=== PATIENT | female | born 1960 | race Caucasian/White ===

== ENCOUNTER 2019-12-22 12:23 | Outpatient (REF) | payer OTHER, SELFPAY ==
[2019-12-22 13:51] LABS: MANUAL DIFF FLAG NO
[2019-12-22 13:59] LABS: Basophils Absolute Auto 0.1 X10*3/uL (0.0-0.2); Basophils Percent Auto 0.8 % (0-2); Eosinophils Absolute Auto 0.2 X10*3/uL (0.0-0.4); Eosinophils Percent Auto 2.1 % (0-4); Hematocrit 42.1 % (37-47); Hemoglobin 14.3 g/dl (12.0-16.0); Imm Gran Abs Auto 0.01 X10*3/uL (0.00-0.03); Imm Gran Pct Auto 0.1 % (0.0-0.4); Lymphocytes Absolute Auto 2.8 X10*3/uL (1.2-4.9); Lymphocytes Percent Auto 39.8 % (20-40); Mean Corpuscular Hemoglobin 31.4 pg (27.0-33.0); Mean Corpuscular Volume 92.5 fL (80-98); Mean Platelet Volume 10.4 fL (9.4-12.3); Monocytes Absolute Auto 0.5 X10*3/uL (0.1-1.2); Monocytes Percent Auto 7.3 % (2-11); Neutrophils Absolute Auto 3.5 X10*3/uL (2.0-8.3); Neutrophils Percent Auto 49.9 % (45-73); Platelet Count 280 X10*3/uL (160-400); Red Blood Count 4.55 X10*6/uL (4.20-5.50); Red Cell Distribution Width 13.9 % (11.0-16.0); White Blood Count 7.1 X10*3/uL (4.8-10.8)
[2019-12-22 14:16] LABS: Glucose Urine UA NEG (NEG); Leukocyte Esterase Urine 1+ (NEG); Nitrite Urine NEG (NEG); Urine Blood NEG (NEG); Urine Ketones NEG (NEG); Urine Protein NEG (NEG-TRACE)
[2019-12-22 14:21] LABS: Appearance Urine HAZY; Color Urine YELLOW
[2019-12-22 14:26] LABS: Alanine Aminotransferase 18 U/L (0-31); Albumin Level 4.6 g/dL (3.5-5.0); Alkaline Phosphatase 65 U/L (39-117); Anion Gap 15 (12-20); Aspartate Amino Transferase 27 U/L (5-31); Bilirubin Total 0.5 mg/dL (0.0-1.0); Blood Urea Nitrogen 16 mg/dL (9-16); Calcium 9.7 mg/dL (8.4-10.2); Carbon Dioxide 24 mmol/L (22-29); Chloride 103 mmol/L (96-108); Cholesterol 237 mg/dL; Estimated Glomerular Filt Rate 60; Glucose Fasting 75 mg/dL (60-99); HDL Cholesterol 66 mg/dL; Iron 185 mcg/dL (30-160); LDL Cholesterol Calculated 153 mg/dl; Percent Iron Saturation 88 % (15-50); Potassium 3.9 mmol/l (3.3-5.1); Sodium 138 mmol/L (135-145); Total Iron Binding Capacity 211 mcg/dL (228-428); Total Protein 6.8 g/dL (6.5-8.0); Triglycerides 92 mg/dL; Unsaturated Iron Binding 26 ug/dL
[2019-12-22 14:32] LABS: Bacteria Urine 2+ /LPF; RBC Urine 0 /HPF (0); Squamous Epithelial Cell Urine 3+ /LPF
[2019-12-22 14:33] LABS: Mucus Urine 2+ /LPF
[2019-12-22 14:49] LABS: Ferritin 209 ng/mL (10-250); Vitamin D 25-OH Total 27.8 ng/mL (>30)
== END 2019-12-22 12:24 | disposition home or self-care (01) ==
LOC: HO.HMGCLDS 12:23
PROVIDERS: PCP Internal Medicine; Visit Provider Internal Medicine
DX: Z00.00 Encounter for general adult medical examination without abnormal findings (principal); E83.119 Hemochromatosis, unspecified
CPT/HCPCS: 36415; 80053; 80061; 81001; 81003; 82306; 82728; 83540; 85025

== ENCOUNTER 2020-02-09 13:39 | Outpatient (REF) | payer OTHER, SELFPAY ==
--- NOTE | 2020-02-09 | MM_ITS ---
EXAMINATION: MM SCREENING DIGITAL BREAST TOMOSYNTHESIS, BILATERAL CLINICAL INFORMATION: Screening. Asymptomatic. Prior [id number] mammography from [place] currently unavailable. The lifetime risk of breast cancer based on the Tyrer-Cuzick Model is 5%. COMPARISON: None. TECHNIQUE: Digital breast tomosynthesis is performed in both the craniocaudal and mediolateral oblique views along with computer-aided detection (CAD). Synthesized 2D images are generated from the tomosynthesis. FINDINGS: There are scattered areas of fibroglandular density (ACR BI-RADS breast composition Category b). There are no significant masses, abnormal calcifications, or other abnormalities. The skin contours are smooth. Radiology department staff will attempt to retrieve prior ehe-ob-qadpe mammography to allow for comparison in an addendum report. MM/MM tomosynthesis screening BI IMPRESSION: No mammographic evidence of malignancy. ASSESSMENT: BI-RADS 1: Negative RECOMMENDATION: Routine annual mammography screening. This patient's information was entered into a reminder system with a target due date for their next mammogram.
--- NOTE | 2020-02-09 13:44 | MM_ITS ---
EXAMINATION: BONE DENSITOMETRY CLINICAL INDICATION: Asymptomatic menopausal state. COMPARISON: This is the patient's baseline examination. TECHNIQUE: Using a [employer] DXA System (software version: 13.1) manufactured by [employer], dual-energy x-ray absorptiometry was performed of the lumbar spine and left hip. The images are of good technical quality. Summary results are attached. FINDINGS: AP SPINE L1-L4: BMD 1.104 g/cm2, Z-score 0.4, T-score -0.6, normal. LEFT FEMUR, NECK: BMD 0.909 g/cm2, Z-score 0.2, T-score -0.9, normal. LEFT FEMUR, TOTAL: BMD 0.940 g/cm2, Z-score 0.3, T-score -0.5, normal. IDENTIFIED RISK FACTORS: Early menopause, secondary osteoporosis, hysterectomy. HISTORY OF FRACTURE: None listed. MEDICATIONS: Multivitamin. MM/XR DEXA axial skeleton IMPRESSION: 1. DIAGNOSIS: Normal bone density based on the lowest T-score value of -0.9 in the femoral neck applying World Health Organization criteria. 2. 10-YEAR FRACTURE RISK PREDICTION, FRAX: Major osteoporotic fracture (clinical spine, forearm, hip or shoulder) 6.7%. Hip fracture 0.3%. 3. Treatment Recommendations: NOF guidelines recommend consideration for treatment in postmenopausal women and men age 50 and older presenting with the following: -A hip or vertebral (clinical or morphometric) fracture. -T-score less than or equal to -2.5 at the femoral neck or spine after appropriate evaluation to exclude secondary causes. -Low bone mass at the hip or spine and a 10-year fracture probability by FRAX of greater than or equal to 3% for hip fracture or greater than or equal to 20% for major osteoporotic fracture based on the [place] adapted WHO algorithm. 4. Other Recommendations: All treatment decisions require clinical judgment and consideration of individual patient factors, including patient preferences, comorbidities, previous drug use, risk factors not captured in the FRAX model (e.g. frailty, falls, vitamin D deficiency, increased bone turnover, interval significant decline in bone density) and possible under or overestimation of fracture risk by FRAX. FUTURE SCAN RECOMMENDATION: People with diagnosed cases of osteoporosis or at high risk for fracture should have regular bone mineral density tests. For patients eligible for Medicare, routine testing is allowed once every 2 years. The testing frequency can be increased to one year for patients who have rapidly progressing disease, those who are receiving or discontinuing medical therapy to restore bone mass, or have additional risk factors.
== END 2020-02-09 13:40 | disposition home or self-care (01) ==
LOC: HO.MAMMO 13:39
PROVIDERS: PCP Internal Medicine; Visit Provider Internal Medicine
DX: Z12.31 Encounter for screening mammogram for malignant neoplasm of breast (principal); Z78.0 Asymptomatic menopausal state
CPT/HCPCS: 77063; 77067; 77080

== ENCOUNTER 2020-03-27 14:29 | Outpatient (REF) | payer OTHER, SELFPAY ==
[2020-03-27 15:25] LABS: Influenza A PCR NEGATIVE (Negative); Influenza B PCR NEGATIVE (Negative); Resp Syncy Virus RNA Qual PCR NEGATIVE (Negative); SARS COV2 PCR INHOUSE NEGATIVE (Negative)
== END 2020-03-27 14:30 | disposition home or self-care (01) ==
LOC: HO.LNP 14:29
PROVIDERS: Visit Provider Internal Medicine
DX: M79.10 Myalgia, unspecified site (principal); R42 Dizziness and giddiness; Z20.822 Contact with and (suspected) exposure to COVID-19
CPT/HCPCS: 0241U

== ENCOUNTER 2020-05-10 10:38 | Outpatient (REF) | payer OTHER, SELFPAY ==
[2020-05-10 13:54] LABS: MANUAL DIFF FLAG NO
[2020-05-10 14:02] LABS: Basophils Absolute Auto 0.1 X10*3/uL (0.0-0.2); Basophils Percent Auto 1.1 % (0-2); Eosinophils Absolute Auto 0.2 X10*3/uL (0.0-0.4); Eosinophils Percent Auto 3.4 % (0-4); Hematocrit 45.4 % (37-47); Hemoglobin 15.3 g/dl (12.0-16.0); Imm Gran Abs Auto 0.02 X10*3/uL (0.00-0.03); Imm Gran Pct Auto 0.3 % (0.0-0.4); Lymphocytes Absolute Auto 2.2 X10*3/uL (1.2-4.9); Lymphocytes Percent Auto 36.1 % (20-40); Mean Corpuscular HGB Conc 33.7 g/dl (31.0-35.0); Mean Corpuscular Hemoglobin 31.2 pg (27.0-33.0); Mean Corpuscular Volume 92.7 fL (80-98); Mean Platelet Volume 10.5 fL (9.4-12.3); Monocytes Absolute Auto 0.5 X10*3/uL (0.1-1.2); Monocytes Percent Auto 7.9 % (2-11); Neutrophils Absolute Auto 3.2 X10*3/uL (2.0-8.3); Neutrophils Percent Auto 51.2 % (45-73); Platelet Count 317 X10*3/uL (160-400); Red Cell Distribution Width 13.4 % (11.0-16.0); White Blood Count 6.2 X10*3/uL (4.8-10.8)
[2020-05-10 14:20] LABS: Alanine Aminotransferase 15 U/L (0-31); Albumin Level 4.7 g/dL (3.5-5.0); Alkaline Phosphatase 69 U/L (39-117); Anion Gap 13 (12-20); Aspartate Amino Transferase 26 U/L (5-31); Bilirubin Total 0.5 mg/dL (0.0-1.0); Blood Urea Nitrogen 10 mg/dL (9-16); C Reactive Protein 0.26 mg/dL (< or = 0.50); Calcium 9.9 mg/dL (8.4-10.2); Carbon Dioxide 28 mmol/L (22-29); Chloride 107 mmol/L (96-108); Estimated Glomerular Filt Rate > 60; Glucose Random 94 mg/dL (60-115); Lipase 23 U/L (8-78); Potassium 4.8 mmol/L (3.3-5.1); Sodium 143 mmol/L (135-145)
== END 2020-05-10 10:39 | disposition home or self-care (01) ==
LOC: HO.10HDL 10:38
PROVIDERS: Visit Provider Internal Medicine
DX: R10.9 Unspecified abdominal pain (principal); I10 Essential (primary) hypertension; K21.9 Gastro-esophageal reflux disease without esophagitis
CPT/HCPCS: 36415; 80053; 83690; 85025; 86140

== ENCOUNTER 2020-10-04 06:28 | Outpatient (REF) | payer BC, SELFPAY ==
[2020-10-07 14:31] LABS: TS Negative Control Passed; TS Panel A 0; TS Panel B 0; TS Positive Control Passed; TSpotTB Negative (SeeBelow)
== END 2020-10-04 06:29 | disposition home or self-care (01) ==
LOC: HO.HMGCLDS 06:28
PROVIDERS: PCP Internal Medicine; Visit Provider Internal Medicine
DX: Z11.1 Encounter for screening for respiratory tuberculosis (principal)
CPT/HCPCS: 36415; 86481

== ENCOUNTER 2021-01-12 07:35 | Outpatient (REF) | payer BC, SELFPAY ==
[2021-01-12 07:49] LABS: MANUAL DIFF FLAG NO
[2021-01-12 08:24] LABS: Basophils Absolute Auto 0.1 X10*3/uL (0.0-0.2); Basophils Percent Auto 1.3 % (0-2); Eosinophils Absolute Auto 0.4 X10*3/uL (0.0-0.4); Eosinophils Percent Auto 5.8 % (0-4); Hematocrit 47.5 % (37.0-47.0); Hemoglobin 15.9 g/dl (12.0-16.0); Imm Gran Abs Auto 0.01 X10*3/uL (0.00-0.03); Imm Gran Pct Auto 0.2 % (0.0-0.4); Lymphocytes Percent Auto 32.7 % (20-40); Mean Corpuscular HGB Conc 33.5 g/dl (31.0-35.0); Mean Corpuscular Hemoglobin 31.1 pg (27.0-33.0); Mean Corpuscular Volume 92.8 fL (80.0-98.0); Mean Platelet Volume 9.6 fL (9.4-12.3); Monocytes Absolute Auto 0.5 X10*3/uL (0.1-1.2); Monocytes Percent Auto 8.1 % (2-11); Neutrophils Absolute Auto 3.2 x10*3/uL (2.0-8.3); Neutrophils Percent Auto 51.9 % (45-73); Platelet Count 320 X10*3/uL (160-400); Red Blood Count 5.12 X10*6/uL (4.20-5.50); White Blood Count 6.2 X10*3/uL (4.8-10.8)
[2021-01-12 08:45] LABS: Alanine Aminotransferase 24 U/L (0-31); Albumin Level 4.4 g/dL (3.5-5.0); Alkaline Phosphatase 71 U/L (39-117); Anion Gap 10 (12-20); Aspartate Amino Transferase 28 U/L (5-31); Bilirubin Total 0.4 mg/dL (0.0-1.0); Blood Urea Nitrogen 12 mg/dL (9-16); Calcium 10.1 mg/dL (8.4-10.2); Carbon Dioxide 28 mmol/L (22-29); Chloride 108 mmol/L (96-108); Cholesterol 231 mg/dL; Estimated Glomerular Filt Rate > 60; Glucose Fasting 106 mg/dL (60-99); HDL Cholesterol 58 mg/dL; Iron 154 mcg/dL (30-160); LDL Cholesterol Calculated 157 mg/dl; Percent Iron Saturation 74 % (15-50); Potassium 4.4 mmol/L (3.3-5.1); Sodium 142 mmol/L (135-145); Total Iron Binding Capacity 207 mcg/dL (228-428); Total Protein 6.5 g/dL (6.5-8.0); Triglycerides 80 mg/dL; Unsaturated Iron Binding 53 ug/dL
[2021-01-12 09:01] LABS: Ferritin 242 ng/mL (10-250); Vitamin D 25-OH Total 21.3 ng/mL (>30)
== END 2021-01-12 07:36 | disposition home or self-care (01) ==
LOC: HO.LAB 07:35
PROVIDERS: PCP Internal Medicine; Visit Provider Internal Medicine
DX: K21.9 Gastro-esophageal reflux disease without esophagitis (principal); I10 Essential (primary) hypertension; E78.00 Pure hypercholesterolemia, unspecified; E83.119 Hemochromatosis, unspecified
CPT/HCPCS: 36415; 80053; 80061; 82306; 82728; 83540; 85025

== ENCOUNTER 2021-01-16 14:05 | Outpatient (REF) | payer BC, SELFPAY ==
--- NOTE | ~2021-01-16 | MR_ITS ---
EXAMINATION: MR LUMBAR SPINE WITHOUT CONTRAST CLINICAL INFORMATION: Right greater than left leg pain and low back pain. COMPARISON: None TECHNIQUE: MRI of the lumbar spine was obtained using routine sequences without contrast. FINDINGS: VERTEBRAL BODIES AND PARASPINAL STRUCTURES: The marrow signal is within normal limits. Multilevel endplate Schmorl's nodes noted, particularly at the lower thoracic levels with moderate disc space narrowing. No compression fractures or subluxations identified. There is a mild leftward curvature of the lumbar spine. The imaged lung bases are clear. The paraspinal soft tissues are unremarkable. The imaged bony pelvis appears normal. CONUS MEDULLARIS AND CAUDA EQUINA: Normal, terminating at the level of L1. No lower cord signal abnormalities seen. The cauda equina nerve roots appear normal. SPINAL LEVELS: T10-T11: Moderate loss of disc height and partially visualized left paracentral to left subarticular zone disc extrusion resulting in mild ventral cord distortion. No central canal stenosis or foraminal narrowing. T11-T12: Moderate loss of disc height and central disc protrusion mildly distorts the ventral cord and thecal sac without central canal stenosis or foraminal narrowing. T12-L1: Moderate loss of disc height and central disc extrusion distorts the ventral aspect of the conus tip. No central canal stenosis or foraminal narrowing. L1-L2: Minimal annular bulge. No central canal stenosis or foraminal narrowing. L2-L3: Anterior endplate spurring and very mild disc bulge with mild facet arthropathy. No central canal stenosis or foraminal encroachment. L3-L4: Slight retrosubluxation and disc bulge lateralized to the left side with mild facet arthropathy. No central canal stenosis. Broad-based left extraforaminal disc bulge/protrusion mildly impresses upon the left L3 nerve root. L4-L5: Mild disc space narrowing and disc bulge with moderate facet arthropathy. No central canal stenosis. Right posterolateral disc bulge and endplate spurring with [id number] right foraminal encroachment abutting the exiting right L4 nerve root. L5-S1: No disc pathology. Moderate hypertrophic facet arthropathy without central canal stenosis or foraminal narrowing. MR/MR lumbar spine wo con IMPRESSION: 1. Left paracentral to left subarticular zone disc extrusion at T10-T11 with ventral cord distortion. 2. Small central disc protrusion mildly distorting the ventral cord at the T11-T12 level. 3. Central disc extrusion at T12-L1 with flattening of the ventral aspect of the conus tip. 4. Minimal retrosubluxation and disc bulge at L3-L4 with a left lateralized disc bulge/protrusion mildly impressing upon the extraforaminal left L3 nerve root. 5. Moderate hypertrophic facet arthropathy at the L4-L5 level with bulging disc and endplate spurring resulting in significant right foraminal encroachment and mild distortion of the right L4 nerve root.
== END 2021-01-16 14:06 | disposition home or self-care (01) ==
LOC: HO.MRI 14:05
PROVIDERS: PCP Internal Medicine; Visit Provider Internal Medicine
DX: G57.00 Lesion of sciatic nerve, unspecified lower limb (principal)
CPT/HCPCS: 72148

== ENCOUNTER 2021-03-05 15:47 | Outpatient (REF) | payer BC, SELFPAY ==
[2021-03-05 15:59] LABS: MANUAL DIFF FLAG NO
[2021-03-05 17:13] LABS: Basophils Absolute Auto 0.1 X10*3/uL (0.0-0.2); Eosinophils Absolute Auto 0.2 X10*3/uL (0.0-0.4); Eosinophils Percent Auto 2.9 % (0-4); Hematocrit 45.2 % (37.0-47.0); Hemoglobin 15.3 g/dl (12.0-16.0); Imm Gran Abs Auto 0.02 X10*3/uL (0.00-0.03); Imm Gran Pct Auto 0.3 % (0.0-0.4); Lymphocytes Absolute Auto 3.3 X10*3/uL (1.2-4.9); Lymphocytes Percent Auto 41.5 % (20-40); Mean Corpuscular HGB Conc 33.8 g/dl (31.0-35.0); Mean Corpuscular Hemoglobin 31.7 pg (27.0-33.0); Mean Corpuscular Volume 93.8 fL (80.0-98.0); Mean Platelet Volume 9.6 fL (9.4-12.3); Monocytes Absolute Auto 0.6 X10*3/uL (0.1-1.2); Monocytes Percent Auto 7.4 % (2-11); Neutrophils Absolute Auto 3.7 x10*3/uL (2.0-8.3); Neutrophils Percent Auto 46.9 % (45-73); Platelet Count 341 X10*3/uL (160-400); Red Blood Count 4.82 X10*6/uL (4.20-5.50); White Blood Count 7.9 X10*3/uL (4.8-10.8)
[2021-03-05 17:38] LABS: Alanine Aminotransferase 24 U/L (0-31); Albumin Level 4.6 g/dL (3.5-5.0); Alkaline Phosphatase 72 U/L (39-117); Anion Gap 13 (12-20); Aspartate Amino Transferase 27 U/L (5-31); Bilirubin Total 0.3 mg/dL (0.0-1.0); Blood Urea Nitrogen 14 mg/dL (9-16); Carbon Dioxide 28 mmol/L (22-29); Chloride 106 mmol/L (96-108); Estimated Glomerular Filt Rate > 60; Glucose Random 78 mg/dL (60-115); Potassium 4.5 mmol/L (3.3-5.1); Sodium 142 mmol/L (135-145); Total Protein 7.3 g/dL (6.5-8.0)
== END 2021-03-05 15:48 | disposition home or self-care (01) ==
LOC: HO.LAB 15:47
PROVIDERS: PCP Internal Medicine; Visit Provider Internal Medicine
DX: I10 Essential (primary) hypertension (principal); M54.9 Dorsalgia, unspecified; K21.9 Gastro-esophageal reflux disease without esophagitis
CPT/HCPCS: 36415; 80053; 85025

== ENCOUNTER 2021-05-06 08:44 | Emergency (ER) | payer BC, SELFPAY ==
--- NOTE | ~2021-05-06 | CT_ITS ---
EXAMINATION: CT ABDOMEN AND PELVIS WITH CONTRAST CLINICAL INFORMATION: Abdominal pain and diarrhea COMPARISON: CT abdomen and pelvis 01/24/2018 TECHNIQUE: Multidetector volumetric images were obtained from the superior aspect of the liver through the pubic symphysis following administration 85 mL of Omnipaque 350 intravenous contrast. Sagittal and coronal reformatted images were obtained on the technologist's workstation. Oral contrast: No This CT examination was performed using dose optimization techniques as appropriate, variously including the following: *Automated exposure control *Adjustment of mA and/or kV according to patient size (this includes techniques or standardized protocols for targeted exams where dose is matched to indication/reason for exam; i.e. extremities or head) *Use of iterative reconstruction technique DLP: 367 mGy-cm FINDINGS: LUNG BASES: The visualized lung bases are unremarkable. LIVER, GALLBLADDER, AND BILIARY TREE: The liver is normal in size, shape, and attenuation. No focal hepatic lesion or biliary ductal dilatation is present. The gallbladder is unremarkable with no evidence of radiopaque gallstones, gallbladder wall thickening, or obvious pericholecystic inflammatory changes. PANCREAS: Unremarkable. SPLEEN: Unremarkable. ADRENAL GLANDS: Unremarkable. KIDNEYS AND URETERS: The kidneys are normal in size, shape, and attenuation. No hydronephrosis, hydroureter, or calculi seen. No perinephric stranding. BLADDER: Unremarkable. GASTROINTESTINAL TRACT: Nondilated small and large bowel are fluid-filled consistent with the history of diarrhea. There is no mural thickening or surrounding inflammatory change. No abscess. No evidence of obstruction. The appendix is normal. ABDOMINAL WALL: No significant hernia is appreciated. LYMPH NODES: Minimally prominent retroperitoneal lymph nodes are stable compared to prior. VASCULAR: Mild aortoiliac atherosclerosis. No aortic aneurysm. The celiac, SMA, and YSABEL are patent. PELVIC VISCERA: Hysterectomy. No pelvic mass. OSSEOUS STRUCTURES: Mild degenerative changes in the spine. No suspicious osseous lesions. CT/CT abdomen pelvis w con IMPRESSION: Nondilated, fluid-filled small and large bowel consistent with the history of diarrhea. No focal inflammatory enteric or colonic inflammatory changes or wall thickening. The findings are consistent with mild enterocolitis. Fleischner guidelines were followed.
[2021-05-06 09:07] VITALS: BP 109/73; PULSE 104; RESP 18; TEMP 37.3; O2SAT 96; BMI 25.2
[2021-05-06 09:34] LABS: Basophils Percent Auto 0.2 % (0-2); Eosinophils Percent Auto 0.3 % (0-4); Hematocrit 47.6 % (37.0-47.0); Hemoglobin 16.4 g/dl (12.0-16.0); Imm Gran Abs Auto 0.05 X10*3/uL (0.00-0.03); Imm Gran Pct Auto 0.4 % (0.0-0.4); Lymphocytes Absolute Auto 0.3 X10*3/uL (1.2-4.9); Lymphocytes Percent Auto 2.5 % (20-40); MANUAL DIFF FLAG SCAN; Mean Corpuscular HGB Conc 34.5 g/dl (31.0-35.0); Mean Corpuscular Hemoglobin 31.7 pg (27.0-33.0); Mean Corpuscular Volume 92.1 fL (80.0-98.0); Mean Platelet Volume 9.3 fL (9.4-12.3); Monocytes Absolute Auto 0.4 X10*3/uL (0.1-1.2); Monocytes Percent Auto 3.6 % (2-11); Neutrophils Absolute Auto 11.2 x10*3/uL (2.0-8.3); Platelet Count 293 X10*3/uL (160-400); Red Blood Count 5.17 X10*6/uL (4.20-5.50); Red Cell Distribution Width 14.3 % (11.0-16.0); SCAN SMEAR FLAG 1; White Blood Count 12.1 X10*3/uL (4.8-10.8)
[2021-05-06 09:44] LABS: Anion Gap 14 (12-20); Blood Urea Nitrogen 19 mg/dL (9-16); Calcium 9.9 mg/dL (8.4-10.2); Carbon Dioxide 21 mmol/L (22-29); Chloride 108 mmol/L (96-108); Creatinine Clr Calc Pharmacy 54.1; Estimated Glomerular Filt Rate 54; Glucose Random 128 mg/dL (60-115); Potassium 4.2 mmol/L (3.3-5.1); Sodium 139 mmol/L (135-145)
[2021-05-06 10:26] LABS: SLIDE REVIEW VERIFIED
[2021-05-06 11:48] VITALS: BP 137/89; PULSE 100; RESP 18; O2SAT 99
--- NOTE | 2021-05-06 11:48 | PC.NURSE ---
Pt received: Pt AOX4 and offers c/o intermittent epigastric abd pain that radiates to under R arm. Pt also c/o intermittent loose diarrea since 2100 last night with vomit x1. Heart sounds normal and lungs clear. Pt abd soft and tenderness to epigastric tenderness noted.
--- NOTE | 2021-05-06 12:03 | ED_ITS ---
HPI - General Adult General Chief complaint: Nausea/Vomiting/Diarrhea Stated complaint: diarrhea/dehydrated/abd pain Time Seen by Provider: 05/06/21 11:55 Source: patient Mode of arrival: ambulatory Limitations: no limitations History of Present Illness HPI narrative: 60-year-old female past medical history of sciatica presents to ED for abdominal cramping and multiple episodes of diarrhea. Patient states around 11 30 last night p.m. she woke up with abdominal cramping and had at least 15-20 episodes of diarrhea that was watery and brown. Patient denies any fever or recent travel outside the country. Patient states abdominal cramping and diarrhea might have been due to strain she ate that night. Patient states she took out the shrimp from the freezer and collected and then went to bed. And then start ed having symptoms. Patient states 4 weeks ago she ate the same straight from the freezer and had similar symptoms but not having worsening diarrhea. Patient denies any recent antibiotic or hospital admission. Patient states vaccinated against COVID with Modernal including booster. Related Data Previous Rx's Medication Instructions Recorded vancomycin 125 mg capsule 125 mg PO QID 10 Days #40 cap 05/06/21 Allergies Allergy/AdvReac Type Severity Reaction Status Date / Time Penicillins [PENICILLINS] Allergy Intermediate HIVES Verified 05/06/21 09:05 Sulfa (Sulfonamide Allergy Intermediate HIVES Verified 05/06/21 09:05 Antibiotics) [SULFA (SULFONAMIDE ANTIBIOTICS)] penicillin G Allergy Unknown hives Verified 02/11/18 00:00 Review of Systems Review of Systems: abdominal cramping and diarrhea Yes all other systems are reviewed and are negative [facility] Past Medical History Medical History (Updated 05/06/21 @ 15:58 by JOSÉ Portillo) Hemochromatosis HTN (hypertension) Social History Social History Advance Directives: No Advance Directives Information Provided: No Physical Exam ED Vital Signs: Vital Signs - 24 hr 05/06/21 09:07 05/06/21 11:48 05/06/21 13:05 Temperature 99.2 F 99 F Pulse Rate 104 H 100 92 Respiratory Rate 18 18 18 Blood Pressure 109/73 137/89 121/70 Pulse Oximetry 96 99 98 BMI result Body Mass Index 25.2 Const General: cooperative, healthy appearing, comfortable, no acute distress, well developed, alert, awake and Physically active Orientation/consciousness: patient oriented x3 HENMT Head: Yes normal to inspection, Yes No palpable skull fracture present, Yes normocephalic, Yes atraumatic and No abrasion Eyes General: appearance normal, both eyes and all related structures Neck Neck: Yes normal visual inspection, Yes full ROM, Yes no lymphadenopathy, Yes no meningeal signs, Yes trachea midline, Yes supple, No anterior neck swelling and No tender Chest Chest palpation & inspection: normal inspection of the chest and normal palpation of entire chest wall Resp Effort & Inspection: normal respiratory effort and able to speak in complete sentences Auscultation: clear to auscultation bilaterally Cardio Jugular venous distension: no JVD Heart sounds: S1 normal heart sound present and S2 normal heart sound present GI Inspection: Yes normal to inspection and No abdominal wall ecchymosis Palpation (GI): Tenderness to palpation present (GI) (mild lower abdominal cramping), no guarding and not rigid General: No CVA tenderness and Yes no CVA tenderness Back/Spine/Pelvis Back: no CVA tenderness, No CVA tenderness and No back tenderness Skin General skin exam: no rashes or lesions noted and elasticity normal Neuro General: patient oriented x3, gait normal, no meningeal signs and CN's II-XI intact bilaterally Cranial nerves: Yes CN's II-XII intact bilaterally Extrem General: Yes normal to inspection and Yes full ROM Psych Appearance: grossly normal, well kempt and not disheveled Course Course Course Narrative: [place] [id number]. Will order IV fluids and abdominal CT scan to evaluate for colitis. Stool culture, C diff, and COVID swab ordered Reevaluation(s) Reevaluation #1: Electrolytes and CBC normal. Patient sent for CT scan came back negative for colitis. UA normal. stool leukocytes negative. Patient came back positive for C. diff. patient will be discharged with vancomycin and told to self isolate from family. Presently no indication for admission. 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 Time: 15:53 Medical Decision Making [facility] Narrative Medical decision making narrative: C diff Lab Data Result diagrams: 05/06/21 09:18 05/06/21 09:18 Labs: Lab Results 05/06/21 05/06/21 05/06/21 Range/Units 09:18 09:18 12:26 WBC 12.1 H (4.8-10.8) X10*3/uL RBC 5.17 (4.20-5.50) X10*6/uL Hgb 16.4 H (12.0-16.0) g/dl Hct 47.6 H (37.0-47.0) % MCV 92.1 (80.0-98.0) fL MCH 31.7 (27.0-33.0) pg MCHC 34.5 (31.0-35.0) g/dl RDW 14.3 (11.0-16.0) % Plt Count 293 (160-400) X10*3/uL MPV 9.3 L (9.4-12.3) fL Immature Gran % (Auto) 0.4 (0.0-0.4) % Neut % (Auto) 93.0 H (45-73) % Lymph % (Auto) 2.5 L (20-40) % [place] % (Auto) 3.6 (2-11) % Eos % (Auto) 0.3 (0-4) % Baso % (Auto) 0.2 (0-2) % Lymph # (Auto) 0.3 L (1.2-4.9) X10*3/uL [place] # (Auto) 0.4 (0.1-1.2) X10*3/uL Eos # (Auto) 0.0 (0.0-0.4) X10*3/uL Baso # (Auto) 0.0 (0.0-0.2) X10*3/uL Abs Immat Gran (auto) 0.05 H (0.00-0.03) X10*3/uL Absolute Neuts (auto) 11.2 H (2.0-8.3) x10*3/uL Absolute Nucleated RBC 0.000 (0.0-0.012) X10*3/uL Nucleated RBC % (auto) 0.0 (0.0-0.2) /100WBC Smear Tech's Comments VERIFIED Sodium 139 (135-145) mmol/L Potassium 4.2 (3.3-5.1) mmol/L Chloride 108 (96-108) mmol/L Carbon Dioxide 21 L (22-29) mmol/L Anion Gap 14 (12-20) BUN 19 H (9-16) mg/dL Creatinine 1.05 (0.5-1.4) mg/dL Estim Creat Clear Calc 54.1 Estimated GFR 54 Random Glucose 128 H (60-115) mg/dL Calcium 9.9 (8.4-10.2) mg/dL Urine Color Urine Appearance Urine pH (5.0-8.0) Ur Specific [place] (1.005-1.025) Urine Protein (NEG-TRACE) MG/DL Urine Glucose (UA) (NEG) MG/DL Urine Ketones (NEG) MG/DL Urine Blood (NEG) Urine Nitrite (NEG) Ur Leukocyte Esterase (NEG) Stool Leukocytes, Qual (NEGATIVE) C. difficile Tox B Gene (Negative) C. difficile Toxin A&B (Negative) C. difficile Interpret COVID-19 (ASHWIN) Negative (Negative) COVID-19 Clin Com See Note 05/06/21 05/06/21 05/06/21 Range/Units 13:37 13:37 13:37 WBC (4.8-10.8) X10*3/uL RBC (4.20-5.50) X10*6/uL Hgb (12.0-16.0) g/dl Hct (37.0-47.0) % MCV (80.0-98.0) fL MCH (27.0-33.0) pg MCHC (31.0-35.0) g/dl RDW (11.0-16.0) % Plt Count (160-400) X10*3/uL MPV (9.4-12.3) fL Immature Gran % (Auto) (0.0-0.4) % Neut % (Auto) (45-73) % Lymph % (Auto) (20-40) % [place] % (Auto) (2-11) % Eos % (Auto) (0-4) % Baso % (Auto) (0-2) % Lymph # (Auto) (1.2-4.9) X10*3/uL [place] # (Auto) (0.1-1.2) X10*3/uL Eos # (Auto) (0.0-0.4) X10*3/uL Baso # (Auto) (0.0-0.2) X10*3/uL Abs Immat Gran (auto) (0.00-0.03) X10*3/uL Absolute Neuts (auto) (2.0-8.3) x10*3/uL Absolute Nucleated RBC (0.0-0.012) X10*3/uL Nucleated RBC % (auto) (0.0-0.2) /100WBC Smear Tech's Comments Sodium (135-145) mmol/L Potassium (3.3-5.1) mmol/L Chloride (96-108) mmol/L Carbon Dioxide (22-29) mmol/L Anion Gap (12-20) BUN (9-16) mg/dL Creatinine (0.5-1.4) mg/dL Estim Creat Clear Calc Estimated GFR Random Glucose (60-115) mg/dL Calcium (8.4-10.2) mg/dL Urine Color YELLOW Urine Appearance HAZY Urine pH 5.5 (5.0-8.0) Ur Specific [place] 1.010 (1.005-1.025) Urine Protein TRACE (NEG-TRACE) MG/DL Urine Glucose (UA) NEG (NEG) MG/DL Urine Ketones NEG (NEG) MG/DL Urine Blood NEG (NEG) Urine Nitrite NEG (NEG) Ur Leukocyte Esterase NEG (NEG) Stool Leukocytes, Qual NEGATIVE (NEGATIVE) C. difficile Tox B Gene POSITIVE A* (Negative) C. difficile Toxin A&B Negative (Negative) C. difficile Interpret SEE NOTE COVID-19 (ASHWIN) (Negative) COVID-19 Clin Com Discharge Plan Discharge Clinical Impression: Clostridium difficile infection Patient Disposition: Home, Self-Care Instructions: C. Diff (Clostridioides Difficile) Infection (ED) Additional Instructions: you came back positive for C diff. this will require to receive vancomycin oral antibiotics. You need to take time off from work. Recommend Brat ( Banna, Rice, Apple sauce, and [place]) and oral hydration. return to the ED for weakness, intractable diarrhea, nausea, vomiting, fever, chills, pale skin, or any other concerning symptoms. Prescriptions: New vancomycin 125 mg capsule 125 mg PO QID 10 Days Qty: 40 0RF Stand Alone Forms: Work/School Release Interventions: ED Discharge Assessment Last Done: 05/06/21 16:17 Discharge Date/Time: 05/06/21 16:18 Print Language: Mohawk
[2021-05-06 12:49] LABS: COVID-19 Test Negative (Negative); IDNOW Serial# 08D9AD1C
[2021-05-06 13:05] VITALS: BP 121/70; PULSE 92; RESP 18; TEMP 37.2; O2SAT 98
[2021-05-06] MEDS: iohexoL 350 MG/ML 100 ML INFUS..BTL IV (13:11)
[2021-05-06] MEDS: 0.9 % Sodium Chloride 1,000 ML 999 ML IV (13:43)
[2021-05-06] MEDS: Ketorolac Tromethamine 30 MG/ML VIAL IVPUSH (13:46)
[2021-05-06 14:03] LABS: Appearance Urine HAZY; Color Urine YELLOW; Glucose Urine UA NEG (NEG); Leukocyte Esterase Urine NEG (NEG); Nitrite Urine NEG (NEG); PH 5.5 (5.0-8.0); Urine Blood NEG (NEG); Urine Ketones NEG (NEG); Urine Protein TRACE MG/DL (NEG-TRACE)
[2021-05-06 14:24] LABS: Leukocytes Stool Qualitative NEGATIVE (NEGATIVE)
[2021-05-06 14:49] LABS: CDiff Gene PCR POSITIVE (Negative)
[2021-05-06 15:25] LABS: CDIFF Internal ctrl Dots and bkg OK (V); CDiff Toxin Negative (Negative)
== END 2021-05-06 16:18 | disposition home or self-care (01) ==
PROVIDERS: Physician Assistant; Emergency Provider Emergency Medicine; PCP Internal Medicine
DX: A04.72 Enterocolitis due to Clostridium difficile, not specified as recurrent (principal); I10 Essential (primary) hypertension; Z20.822 Contact with and (suspected) exposure to COVID-19
CPT/HCPCS: 36415; 74177; 80048; 81003; 85025; 87045; 87046; 87324; 87493; 87635; 89055; 96361; 96374; 99283; 99284; J1885; Q9967

== ENCOUNTER 2021-06-01 10:11 | Outpatient (REF) | payer BC, SELFPAY ==
[2021-06-01 10:40] LABS: MANUAL DIFF FLAG NO
[2021-06-01 11:16] LABS: Basophils Absolute Auto 0.1 X10*3/uL (0.0-0.2); Basophils Percent Auto 1.5 % (0-2); Eosinophils Absolute Auto 0.2 X10*3/uL (0.0-0.4); Eosinophils Percent Auto 3.5 % (0-4); Hematocrit 44.1 % (37.0-47.0); Hemoglobin 14.8 g/dl (12.0-16.0); Imm Gran Abs Auto 0.01 X10*3/uL (0.00-0.03); Imm Gran Pct Auto 0.2 % (0.0-0.4); Lymphocytes Absolute Auto 2.1 X10*3/uL (1.2-4.9); Lymphocytes Percent Auto 38.6 % (20-40); Mean Corpuscular HGB Conc 33.6 g/dl (31.0-35.0); Mean Corpuscular Hemoglobin 31.2 pg (27.0-33.0); Mean Platelet Volume 9.5 fL (9.4-12.3); Monocytes Absolute Auto 0.5 X10*3/uL (0.1-1.2); Monocytes Percent Auto 9.2 % (2-11); Neutrophils Absolute Auto 2.6 x10*3/uL (2.0-8.3); Platelet Count 278 X10*3/uL (160-400); Red Blood Count 4.74 X10*6/uL (4.20-5.50); Red Cell Distribution Width 14.1 % (11.0-16.0); White Blood Count 5.4 X10*3/uL (4.8-10.8)
[2021-06-01 12:03] LABS: Alanine Aminotransferase 19 U/L (0-31); Albumin Level 4.3 g/dL (3.5-5.0); Alkaline Phosphatase 63 U/L (39-117); Anion Gap 11 (12-20); Aspartate Amino Transferase 25 U/L (5-31); Bilirubin Total 0.6 mg/dL (0.0-1.0); Blood Urea Nitrogen 11 mg/dL (9-16); C Reactive Protein 0.17 mg/dL (< or = 0.50); Calcium 9.9 mg/dL (8.4-10.2); Carbon Dioxide 26 mmol/L (22-29); Chloride 106 mmol/L (96-108); Estimated Glomerular Filt Rate > 60; Glucose Random 92 mg/dL (60-115); Potassium 4.1 mmol/L (3.3-5.1); Sodium 139 mmol/L (135-145); Total Protein 6.6 g/dL (6.5-8.0)
== END 2021-06-01 10:12 | disposition home or self-care (01) ==
LOC: HO.LAB 10:11
PROVIDERS: PCP Internal Medicine; Visit Provider Internal Medicine
DX: I10 Essential (primary) hypertension (principal); K21.9 Gastro-esophageal reflux disease without esophagitis; B96.89 Other specified bacterial agents as the cause of diseases classified elsewhere
CPT/HCPCS: 36415; 80053; 85025; 86140

== ENCOUNTER 2022-01-15 09:36 | Outpatient (REF) | payer BC, SELFPAY ==
--- NOTE | ~2022-01-15 | XR_ITS ---
EXAMINATION: XR CHEST CLINICAL INFORMATION: Weight loss COMPARISON: Previous chest x-ray most recent May 2019 TECHNIQUE: 2 views of the chest were obtained. FINDINGS: No significant abnormality is noted involving the heart, lungs, mediastinum, bony thorax or soft tissues. There are postsurgical changes to the cervical spine. There are mild degenerative changes of the thoracic spine. XR/XR chest 2V IMPRESSION: No evidence for acute disease in the chest.
[2022-01-15 10:26] LABS: MANUAL DIFF FLAG NO
[2022-01-15 10:30] LABS: Basophils Absolute Auto 0.1 X10*3/uL (0.0-0.2); Basophils Percent Auto 1.1 % (0-2); Eosinophils Absolute Auto 0.1 X10*3/uL (0.0-0.4); Hematocrit 45.8 % (37.0-47.0); Hemoglobin 15.3 g/dl (12.0-16.0); Imm Gran Abs Auto 0.01 X10*3/uL (0.00-0.03); Imm Gran Pct Auto 0.2 % (0.0-0.4); Lymphocytes Absolute Auto 2.2 X10*3/uL (1.2-4.9); Lymphocytes Percent Auto 33.1 % (20-40); Mean Corpuscular HGB Conc 33.4 g/dl (31.0-35.0); Mean Corpuscular Hemoglobin 31.9 pg (27.0-33.0); Mean Corpuscular Volume 95.4 fL (80.0-98.0); Mean Platelet Volume 9.7 fL (9.4-12.3); Monocytes Absolute Auto 0.5 X10*3/uL (0.1-1.2); Monocytes Percent Auto 7.1 % (2-11); Neutrophils Absolute Auto 3.7 x10*3/uL (2.0-8.3); Neutrophils Percent Auto 56.5 % (45-73); Platelet Count 286 X10*3/uL (160-400); Red Cell Distribution Width 13.6 % (11.0-16.0); White Blood Count 6.6 X10*3/uL (4.8-10.8)
[2022-01-15 10:40] LABS: Alanine Aminotransferase 13 U/L (0-31); Albumin Level 4.6 g/dL (3.5-5.0); Alkaline Phosphatase 58 U/L (39-117); Anion Gap 15 (12-20); Aspartate Amino Transferase 22 U/L (5-31); Bilirubin Total 0.5 mg/dL (0.0-1.0); Blood Urea Nitrogen 12 mg/dL (9-16); C Reactive Protein 0.12 mg/dL (< or = 0.50); Calcium 10.2 mg/dL (8.4-10.2); Carbon Dioxide 25 mmol/L (22-29); Chloride 105 mmol/L (96-108); Cholesterol 239 mg/dL; Estimated Glomerular Filt Rate > 60; Glucose Random 91 mg/dL (60-115); Potassium 4.3 mmol/L (3.3-5.1); Sodium 141 mmol/L (135-145)
[2022-01-15 11:01] LABS: Free T4 (Free Thyroxine) 0.92 ng/dL (0.71-1.85)
== END 2022-01-15 09:37 | disposition home or self-care (01) ==
LOC: HO.10HDL 09:36
PROVIDERS: Visit Provider Internal Medicine
DX: I10 Essential (primary) hypertension (principal); R63.4 Abnormal weight loss; K21.9 Gastro-esophageal reflux disease without esophagitis; Z87.891 Personal history of nicotine dependence
CPT/HCPCS: 36415; 71046; 80053; 82465; 84439; 85025; 86140

== ENCOUNTER 2022-05-07 14:34 | Outpatient (REF) | payer BC, SELFPAY | END 2022-05-07 14:35 | disposition home or self-care (01) | LOC: HO.BBR 14:34 | PROVIDERS: Visit Provider Internal Medicine Gastroenterology | DX: Z13.89 Encounter for screening for other disorder (principal) ==

== ENCOUNTER 2022-06-04 14:49 | Outpatient (REF) | payer BC, SELFPAY | END 2022-06-04 14:50 | disposition home or self-care (01) | LOC: HO.BBR 14:49 | PROVIDERS: PCP Internal Medicine; Visit Provider Internal Medicine Gastroenterology | DX: Z13.89 Encounter for screening for other disorder (principal) ==

== ENCOUNTER 2022-07-09 15:07 | Outpatient (REF) | payer BC, SELFPAY | END 2022-07-09 15:08 | disposition home or self-care (01) | LOC: HO.BBR 15:07 | PROVIDERS: PCP Internal Medicine; Visit Provider Internal Medicine Gastroenterology | DX: Z13.89 Encounter for screening for other disorder (principal) ==

== ENCOUNTER 2022-08-13 07:54 | Outpatient (REF) | payer BC, SELFPAY | END 2022-08-13 07:55 | disposition home or self-care (01) | LOC: HO.BBR 07:54 | PROVIDERS: PCP Internal Medicine; Visit Provider Internal Medicine Gastroenterology | DX: Z13.89 Encounter for screening for other disorder (principal) ==

== ENCOUNTER 2022-09-17 12:54 | Outpatient (REF) | payer BC, SELFPAY | END 2022-09-17 12:55 | disposition home or self-care (01) | LOC: HO.BBR 12:54 | PROVIDERS: PCP Internal Medicine; Visit Provider Internal Medicine Gastroenterology | DX: Z13.89 Encounter for screening for other disorder (principal) ==

== ENCOUNTER 2022-10-22 14:49 | Outpatient (REF) | payer BC, SELFPAY | END 2022-10-22 14:50 | disposition home or self-care (01) | LOC: HO.BBR 14:49 | PROVIDERS: PCP Internal Medicine; Visit Provider Internal Medicine Gastroenterology | DX: Z13.89 Encounter for screening for other disorder (principal) ==

== ENCOUNTER 2022-11-19 14:56 | Outpatient (REF) | payer BC, SELFPAY | END 2022-11-19 14:57 | disposition home or self-care (01) | LOC: HO.BBR 14:56 | PROVIDERS: PCP Internal Medicine; Visit Provider Internal Medicine Gastroenterology | DX: Z13.89 Encounter for screening for other disorder (principal) ==

== ENCOUNTER 2022-12-17 13:51 | Outpatient (REF) | payer BC, SELFPAY | END 2022-12-17 13:52 | disposition home or self-care (01) | LOC: HO.BBR 13:51 | PROVIDERS: PCP Internal Medicine; Visit Provider Internal Medicine Gastroenterology | DX: Z13.89 Encounter for screening for other disorder (principal) ==

== ENCOUNTER 2023-01-28 07:59 | Outpatient (REF) | payer BC, SELFPAY | END 2023-01-28 08:00 | disposition home or self-care (01) | LOC: HO.MAMMO 07:59 | PROVIDERS: PCP Internal Medicine; Visit Provider Internal Medicine | DX: Z12.31 Encounter for screening mammogram for malignant neoplasm of breast (principal) | CPT/HCPCS: 77063; 77067 ==

== ENCOUNTER → 2023-01-28 08:15 | Outpatient (BNV) | payer BC, SELFPAY | PROVIDERS: PCP Internal Medicine; Visit Provider Radiology Diagnostic Radiology | DX: Z12.31 Encounter for screening mammogram for malignant neoplasm of breast (principal) | CPT/HCPCS: 77063; 77067 ==

== ENCOUNTER 2023-01-28 08:44 | Outpatient (REF) | payer BC, SELFPAY | END 2023-01-28 08:45 | disposition home or self-care (01) | LOC: HO.BBR 08:44 | PROVIDERS: PCP Internal Medicine; Visit Provider Internal Medicine Gastroenterology | DX: Z13.89 Encounter for screening for other disorder (principal) ==

== ENCOUNTER 2023-02-25 15:21 | Outpatient (REF) | payer BC, SELFPAY | END 2023-02-25 15:22 | disposition home or self-care (01) | LOC: HO.BBR 15:21 | PROVIDERS: PCP Internal Medicine; Visit Provider Internal Medicine Gastroenterology | DX: Z13.89 Encounter for screening for other disorder (principal) ==

== ENCOUNTER 2023-03-25 15:11 | Outpatient (REF) | payer BC, SELFPAY | END 2023-03-25 15:12 | disposition home or self-care (01) | LOC: HO.BBR 15:11 | PROVIDERS: PCP Internal Medicine; Visit Provider Internal Medicine Gastroenterology | DX: Z13.89 Encounter for screening for other disorder (principal) ==

== ENCOUNTER 2023-04-01 06:59 | Outpatient (REF) | payer BC, SELFPAY ==
[2023-04-01 11:24] LABS: MANUAL DIFF FLAG NO
[2023-04-01 11:42] LABS: Basophils Absolute Auto 0.1 X10*3/uL (0.0-0.2); Eosinophils Absolute Auto 0.2 X10*3/uL (0.0-0.4); Eosinophils Percent Auto 4.4 % (0-4); Hematocrit 36.6 % (37.0-47.0); Hemoglobin 11.8 g/dl (12.0-16.0); Imm Gran Abs Auto 0.01 X10*3/uL (0.00-0.03); Imm Gran Pct Auto 0.2 % (0.0-0.4); Lymphocytes Absolute Auto 1.8 X10*3/uL (1.2-4.9); Lymphocytes Percent Auto 42.7 % (20-40); Mean Corpuscular HGB Conc 32.2 g/dl (31.0-35.0); Mean Corpuscular Hemoglobin 28.9 pg (27.0-33.0); Mean Corpuscular Volume 89.7 fL (80.0-98.0); Mean Platelet Volume 9.8 fL (9.4-12.3); Monocytes Absolute Auto 0.4 X10*3/uL (0.1-1.2); Monocytes Percent Auto 8.8 % (2-11); Neutrophils Absolute Auto 1.7 x10*3/uL (2.0-8.3); Neutrophils Percent Auto 41.9 % (45-73); Platelet Count 399 X10*3/uL (160-400); Red Blood Count 4.08 X10*6/uL (4.20-5.50); Red Cell Distribution Width 13.3 % (11.0-16.0); White Blood Count 4.1 X10*3/uL (4.8-10.8)
[2023-04-01 11:53] LABS: Alanine Aminotransferase 10 U/L (0-31); Albumin Level 4.2 g/dL (3.5-5.0); Alkaline Phosphatase 52 U/L (39-117); Anion Gap 13 (12-20); Aspartate Amino Transferase 20 U/L (5-31); Bilirubin Total 0.3 mg/dL (0.0-1.0); Blood Urea Nitrogen 14 mg/dL (9-16); Calcium 9.6 mg/dL (8.4-10.2); Carbon Dioxide 24 mmol/L (22-29); Chloride 110 mmol/L (96-108); Cholesterol 256 mg/dL (<200); Estimated Glomerular Filt Rate > 60; Glucose Fasting 93 mg/dL (60-99); HDL Cholesterol 72 mg/dL (>40); LDL Cholesterol Calculated 161 mg/dL (<100); Potassium 4.1 mmol/L (3.3-5.1); Sodium 143 mmol/L (135-145); Total Protein 6.8 g/dL (6.5-8.0); Triglycerides 115 mg/dL (<150)
[2023-04-01 12:18] LABS: Alanine Aminotransferase 10 U/L (0-31); Albumin Level 4.1 g/dL (3.5-5.0); Alkaline Phosphatase 52 U/L (39-117); Anion Gap 14 (12-20); Aspartate Amino Transferase 18 U/L (5-31); Bilirubin Direct 0.1 mg/dL (0.0-0.5); Bilirubin Total 0.3 mg/dL (0.0-1.0); Blood Urea Nitrogen 14 mg/dL (9-16); Calcium 9.5 mg/dL (8.4-10.2); Carbon Dioxide 22 mmol/L (22-29); Chloride 110 mmol/L (96-108); Estimated Glomerular Filt Rate > 60; Ferritin 8 ng/mL (10-250); Glucose Random 89 mg/dL (60-115); Iron 22 mcg/dL (30-160); Percent Iron Saturation 8 % (15-50); Potassium 4.1 mmol/L (3.3-5.1); Sodium 142 mmol/L (135-145); Total Iron Binding Capacity 264 mcg/dL (228-428); Total Protein 6.7 g/dL (6.5-8.0); Unsaturated Iron Binding 242 ug/dL
== END 2023-04-01 07:00 | disposition home or self-care (01) ==
LOC: HO.HMGCLDS 06:59
PROVIDERS: PCP Internal Medicine; Referring Provider Internal Medicine Gastroenterology; Visit Provider Internal Medicine
DX: K21.9 Gastro-esophageal reflux disease without esophagitis (principal); E78.00 Pure hypercholesterolemia, unspecified; I10 Essential (primary) hypertension
CPT/HCPCS: 36415; 80048; 80053; 80061; 80076; 82728; 83540; 85025

== ENCOUNTER 2023-04-10 07:38 | Outpatient (REF) | payer BC, SELFPAY ==
[2023-04-10 08:21] LABS: Immature Retic Fraction 14.6 % (3.0-15.9); Retic HGB Equivalent 27.1 pg (30.0-35.0); Reticulocyte Percent 2.5 % (0.5-1.8); Reticulocytes Absolute 0.095 X10*6/uL (0.026-0.095)
[2023-04-10 09:06] LABS: Free T4 (Free Thyroxine) 0.81 ng/dL (0.71-1.85); Thyroid Stimulating Hormone 2.09 uIU/mL (0.32-4.0)
== END 2023-04-10 07:39 | disposition home or self-care (01) ==
LOC: HO.LAB 07:38
PROVIDERS: PCP Internal Medicine; Visit Provider Internal Medicine
DX: D64.9 Anemia, unspecified (principal); R63.5 Abnormal weight gain; E83.119 Hemochromatosis, unspecified; R00.2 Palpitations
CPT/HCPCS: 36415; 83735; 84439; 84443; 85045

== ENCOUNTER → 2023-05-06 07:36 | Outpatient (REF) | payer BC, SELFPAY ==
--- NOTE | 2023-05-06 07:42 | CA_ITS ---
Transthoracic Echocardiogram Patient (Last, First, Middle): Linda Coyle K Gender: Female Date of : 1960 Age: 62 Procedure Date: 05/06/2023 Procedure Type: Transthoracic Echocardiogram Location: OP Height: 165.1 cm Weight: 58.97 kg BSA: 1.65 m2 Heart Rate: bpm BP: 146 / 100 mmHg [place]: TO Referring MD: Billy Aguilar MD Market Development Trainer: Tony Baker MD Symptoms: PALPITATIONS Study Quality: Adequate ECG Rhythm: Sinus Conclusions: - 1. Normal LV systolic function with LVEF of 60-65% with grade 1 diastolic dysfunction 2. Trivial aortic regurgitation 3. Upper limits of normal ascending aortic size at 3.5 cm 4. Normal RV systolic pressure 5. No gross pericardial effusion Findings Left Ventricle Normal left ventricular size, thickness, and systolic function. The visually estimated ejection fraction is between 60-65%. Spectral Doppler is indicative of an impaired relaxation filling pattern. E/E prime ratio is <8, consistent with normal filling pressures. Evidence suggests grade I (mild) diastolic dysfunction. Peak GLS is -21.5%, within normal limits. Right Ventricle Normal right ventricular cavity size and systolic function. Atria Both atria are normal in size. There is no evidence of interatrial shunt. Aortic Valve Normal aortic valve structure and function. There is no aortic valve stenosis. There is trace (trivial) aortic valve regurgitation. Mitral Valve Normal mitral valve structure and function. There is trace mitral valve regurgitation. There is no mitral valve stenosis. Pulmonic Valve The pulmonic valve is likely normal. There is trace pulmonic valve regurgitation. Tricuspid Valve Normal tricuspid valve structure. There is trace tricuspid valve regurgitation. The right ventricular systolic pressure is normal. The right ventricular systolic pressure is 15 mmHg. Normal right atrial pressure. There is no evidence of pulmonary hypertension. Great Vessels The pulmonary artery was not well visualized. Venous The inferior vena cava is normal in size and collapses greater than 50% with inspiration. Pericardium/Pleural There is no evidence of pericardial effusion. Prior Study Comparison No prior study available for comparison. Measurements 2D Linear Measurements IVSd: 1.17 0.6-0.9/0.6-1.0 cm LVIDd: 4.08 3.9-5.3/4.2-5.9 cm LVIDd Index: 2.47 2.4-3.2/2.2-3.1 cm/m2 LVIDs: 2.58 2.0-3.6 cm LVPWd: 0.85 0.7-1.1 cm LA Diam: 2.90 2.7-3.8/3.0-4.0 cm LAIDs Index: 1.76 1.5-2.3 cm/m2 LV Mass: 165.43 67-162/88-224 g LV Mass Index: 100.26 43-95/49-115 g/m2 LVOT Diam: 2.10 3.0+(-)1.3 cm 2D Systolic Function EF 4C: 63.60 >55% EF 2C: 68.90 >55% EF BiP: 66.20 >55% Mitral Valve MV VTI: 0.25 MV Pk Dieudonne: 0.86 MV Mn Dieudonne: 0.52 MV Pk Grad: 3.00 MV Mn Grad: 1.00 MV Pk E: 0.58 MV PK A: 0.74 MV Decel Time: 207.00 E/A: 0.80 E'Lateral: 8.38 E'Medial: 5.22 E/E' Med: 11.20 E/E' Lat: 7.00 PHT: 61.00 MVA PHT: 3.61 MVA Continuity: 2.79 Decel [place]: 2.82 Aortic Valve AoV Pk Dieud[place]: 1.06 AoV Mn [place]: 0.68 AoV VTI: 0.22 AoV Pk Grad: 4.00 Aov Mn Grad: 2.00 EMILY Cont.VTI: 3.07 LVOT LVOT Pk [place]: 0.87 LVOT Mn [place]: 0.55 LVOT VTI: 0.20 LVOT Pk Grad: 3.00 LVOT Mn Grad: 1.00 LVOT Diam: 2.10 LVOT Area: 3.46 Diastolic Function MV Pk E: 0.58 MV Pk A: 0.74 E/A: 0.80 E'Medial: 5.22 E/E' Med: 11.20 E' Laterial: 8.38 E/E' Lat: 7.00 Right Ventricle TAPSE (mm): 19.30 TVS' Dieudonne: 11.90 Tricuspid Valve TR Pk [place]: 1.72 TR Pk Grad: 12.00 RA Press: 3.00 RVSP: 15.00 Great Vessels Aorta Sinus of Valsalva: 3.78 2.0-3.5 cm Ao Asc: 3.50 2.1-3.4 cm Updated in Other Vendor System with Status of Final Tony Baker MD electronically signed on 05/06/2023 2:20:50 PM with status of Final
--- NOTE | 2023-05-06 07:43 | CA_ITS ---
Acquisition Time: 2023-05-06 09:01:50 Total Exercise Time: 00:06:19 Test Indications: PALPITATIONS Medications: SEE H Protocol: JOIE Max HR: 136 BPM 85% of Pred: 159 BPM Max BP: 168/090 mmHG Max Work Load: 7.2 METS Exercise stress test exercise 6 min 19 sec of Joie protocol achieving 86% MPHR, with mild SOB, no chest discomfort, with isolated PACs and PVCs, with intial diastolic 98 mmHg, reduced to 88 mmHg, max diasoltic 110 mmHg. end Bp at baseline, with inverted T wave aVF. Test reviewed with Dr. Almaguer. Referred By: Billy Aguilar Overread By: Karrie Barreto
== END ==
LOC: HO.CARD 07:36
PROVIDERS: PCP Internal Medicine; Visit Provider Internal Medicine
DX: R00.2 Palpitations (principal)
CPT/HCPCS: 93017; 93306; 93356

== ENCOUNTER → 2023-05-06 07:42 | Outpatient (BNV) | payer BC, SELFPAY | PROVIDERS: PCP Internal Medicine; Visit Provider Internal Medicine Cardiovascular Disease | DX: R06.02 Shortness of breath (principal); I49.1 Atrial premature depolarization; R00.2 Palpitations | CPT/HCPCS: 93016; 93018; 93306 ==

== ENCOUNTER → 2023-06-03 07:53 | Outpatient (REF) | payer BC, SELFPAY ==
--- NOTE | ~2023-06-03 | US_ITS ---
EXAMINATION: US ABDOMEN COMPLETE CLINICAL INFORMATION: History of GHC (genetic hemochromatosis). COMPARISON: CT abdomen and pelvis 05/06/2021. Ultrasound abdomen limited 07/27/2018. Ultrasound abdomen complete 02/03/2018. TECHNIQUE: Real-time imaging of the abdominal viscera. FINDINGS: PANCREAS: Normal. ABDOMINAL AORTA: The proximal, mid, and distal segments are normal in caliber. INFERIOR VENA CAVA: Visualized portions are normal. LIVER: Normal. The liver is normal in size. The liver contour is normal. Parenchymal echogenicity is normal. No focal hepatic lesion. There is no intrahepatic biliary duct dilatation seen. GALLBLADDER: The gallbladder is physiologically distended. Multiple shadowing gallstones are present. No evidence of gallbladder wall thickening or pericholecystic fluid. COMMON BILE DUCT: Normal in caliber measuring 0.6 cm in diameter. RIGHT KIDNEY: Normal. No hydronephrosis. No renal calculi or focal parenchymal lesions. The kidney measures 10.2 cm in maximum dimension. LEFT KIDNEY: Normal. No hydronephrosis. No renal calculi or focal parenchymal lesions. The kidney measures 10.1 cm in maximum dimension. SPLEEN: Normal. The spleen measures 8.2 cm in maximum dimension. FREE FLUID: None. US/US abdomen complete IMPRESSION: There is cholelithiasis. The examination is otherwise unremarkable.
--- NOTE | 2023-06-03 07:56 | HM_ITS ---
Conclusion: 1. Patient was monitored for total period of 3 days 2. Baseline was normal sinus with average heart of 71 beats per minute 3. Rare PACs noted 4. No significant pauses noted 5. Patient marked the counter 5 times, correlating with sinus rhythm, the diary recorded symptoms did not correlated with the markers MTDD
== END ==
LOC: HO.CARD 07:53
PROVIDERS: PCP Internal Medicine; Visit Provider Internal Medicine Gastroenterology
DX: R00.2 Palpitations (principal); E83.110 Hereditary hemochromatosis
CPT/HCPCS: 76700; 93242

== ENCOUNTER → 2023-06-03 07:56 | Outpatient (BNV) | payer BC, SELFPAY | PROVIDERS: PCP Internal Medicine; Visit Provider Internal Medicine Cardiovascular Disease | DX: I49.1 Atrial premature depolarization (principal) | CPT/HCPCS: 93244 ==

== ENCOUNTER 2023-10-14 10:37 | Outpatient (REF) | payer BC, SELFPAY ==
[2023-10-14 13:21] LABS: MANUAL DIFF FLAG NO
[2023-10-14 13:49] LABS: Basophils Absolute Auto 0.1 X10*3/uL (0.0-0.2); Basophils Percent Auto 0.9 % (0-2); Eosinophils Absolute Auto 0.1 X10*3/uL (0.0-0.4); Eosinophils Percent Auto 0.9 % (0-4); Hematocrit 41.8 % (37.0-47.0); Hemoglobin 13.9 g/dl (12.0-16.0); Imm Gran Abs Auto 0.02 X10*3/uL (0.00-0.03); Imm Gran Pct Auto 0.2 % (0.0-0.4); Lymphocytes Absolute Auto 1.6 X10*3/uL (1.2-4.9); Mean Corpuscular HGB Conc 33.3 g/dl (31.0-35.0); Mean Corpuscular Hemoglobin 28.7 pg (27.0-33.0); Mean Corpuscular Volume 86.2 fL (80.0-98.0); Mean Platelet Volume 10.4 fL (9.4-12.3); Monocytes Absolute Auto 0.7 X10*3/uL (0.1-1.2); Monocytes Percent Auto 7.7 % (2-11); Neutrophils Percent Auto 71.3 % (45-73); Platelet Count 309 X10*3/uL (160-400); Red Blood Count 4.85 X10*6/uL (4.20-5.50); White Blood Count 8.5 X10*3/uL (4.8-10.8)
[2023-10-14 14:03] LABS: Alanine Aminotransferase 11 U/L (0-31); Albumin Level 4.1 g/dL (3.5-5.0); Alkaline Phosphatase 71 U/L (39-117); Anion Gap 11 (12-20); Aspartate Amino Transferase 21 U/L (5-31); Bilirubin Total 0.3 mg/dL (0.0-1.0); Blood Urea Nitrogen 11 mg/dL (9-16); Calcium 9.7 mg/dL (8.4-10.2); Carbon Dioxide 23 mmol/L (22-29); Chloride 108 mmol/L (96-108); Estimated Glomerular Filt Rate > 60; Glucose Random 160 mg/dL (60-115); Iron 51 mcg/dL (30-160); Percent Iron Saturation 23 % (15-50); Potassium 3.4 mmol/L (3.3-5.1); Sodium 139 mmol/L (135-145); Total Iron Binding Capacity 220 mcg/dL (228-428); Total Protein 6.8 g/dL (6.5-8.0); Unsaturated Iron Binding 169 ug/dL
[2023-10-14 14:10] LABS: Ferritin 20 ng/mL (10-250); Free T4 (Free Thyroxine) 1.01 ng/dL (0.71-1.85); Thyroid Stimulating Hormone 1.38 uIU/mL (0.32-4.0)
== END 2023-10-14 10:38 | disposition home or self-care (01) ==
LOC: HO.10HDL 10:37
PROVIDERS: Referring Provider Internal Medicine Gastroenterology; Visit Provider Internal Medicine
DX: I10 Essential (primary) hypertension (principal); K21.9 Gastro-esophageal reflux disease without esophagitis; R63.5 Abnormal weight gain
CPT/HCPCS: 36415; 80053; 82728; 83540; 83735; 84439; 84443; 85025

== ENCOUNTER 2023-10-28 08:31 | Outpatient (AMB) | payer BC, SELFPAY ==
--- NOTE | 2023-10-28 08:39 | A.OFFVIS_ITS ---
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 She states that she is frequently getting heart fluttering type sensations. They were too bothersome in the past but these days she is getting him almost regularly. She feels as though there is some pulsations in the neck and she also gets an need to cough that time. No clear anginal-type symptoms or in fact anything else from cardiac. No known coronary disease or myocardial infarction or cardiomyopathy. Poorly controlled hypertension. [facility] Medical History (Updated 10/28/23 @ 09:13 by Scotty Reynolds MD) Hemochromatosis HTN (hypertension) Family History (Updated 10/28/23 @ 08:45 by Cyndee Jonas CMA) Brother Atrial fibrillation History of cardioversion Social History (Updated 10/28/23 @ 09:11 by Scotty Reynolds MD) Patient Tobacco Use Status: Current everyday Tobacco user Review of Systems Const Denies chills, Denies fatigue, Denies fever(s), Denies weight gain and Denies weight loss Eyes Denies loss of vision ENT Denies dizziness Card Denies chest pain, Denies leg edema, Denies lightheadedness, Reports palpitations, Denies dyspnea on exertion, Denies orthopnea and Denies other Resp Denies cough, Denies dyspnea on exertion and Denies wheezing GI Denies hematochezia and Denies change in stool character Denies urinary frequency and Denies dysuria Musc Denies abnormal gait, Denies muscle weakness, Denies numbness, Denies radiating pain into limb and Denies tingling Skin/Breast Denies nail changes and Denies rash Neuro Denies Abnormal speech present, Denies abnormal gait, Denies dizziness, Denies loss of vision, Denies memory loss, Denies numbness and Denies tingling Psych Denies depression and Denies memory loss Endo Denies fatigue and Reports palpitations Edison/Lymph Denies easy bruising Aller/Immun Denies wheezing Physical Exam Vital Signs: Last Vital Signs Pulse 61 10/28/23 08:40 BP 164/100 H 10/28/23 08:40 BMI result Body Mass Index 25.4 Const General: comfortable and no acute distress Orientation/consciousness: patient oriented x3 HEENT Other: Unremarkable Head: Yes normal to inspection Neck Neck: Yes normal visual inspection Chest Chest palpation & inspection: normal inspection of the chest Resp Auscultation: clear to auscultation bilaterally Cardio Palpation: normal PMI Heart sounds: S1 normal heart sound present, S2 normal heart sound present, no gallops, no murmurs and no rubs GI Palpation (GI): Soft to palpation Back/Spine/Pelvis Other: unremarkable Skin General skin exam: no rashes or lesions noted Neuro General: patient oriented x3 Speech: No Abnormal speech present Extrem General: Yes normal to inspection Psych Mental Status: mental status grossly normal Office Procedures EKG Details: EKG with underlying sinus rhythm at 61/Min; no significant ST-T changes and otherwise unremarkable. [id number], Complete Assessment & Plan Assessment & Plan (1) Atrial arrhythmia: Code(s): I49.8 - Other specified cardiac arrhythmias Category: Medical Plan: Cardiac studies reviewed. Echocardiogram with LVEF of 60-65%. Normal peak global longitudinal strain. Top normal ascending aortic size at 3.5 cm but otherwise unremarkable. Holter shows underlying sinus rhythm with rare supraventricular ectopy. In the stress test, she was able to exercise up to 7.2 METS on Silviano protocol and reached target heart rate. No chest discomfort. Unremarkable test. Overall, symptoms possibly from PACs, but unclear if she has any other arrhythmias. As she is describing much more symptoms than in the past, consider another Holter monitor for a longer period-14 days. However, she feels as though it might be more expensive as previously she paid more than a 1000 dollars for this. Hence she would like to just try something like [employer] mobile, if that is cheaper. She will check with the insurance and decide accordingly. Otherwise, advised to cut back on stimulants like nicotine, caffeine, salty foods extra. We will reassess in 3 months. (2) Essential hypertension: Code(s): I10 - Essential (primary) hypertension Category: Medical Plan: Blood pressure runs quite high. I checked it again and it is similar. Per patient, intolerance to several drugs. With amlodipine, got tired. With lisinopril, got cough. With losartan, again some symptoms like fatigue and tiredness. We can try hydrochlorothiazide. As long as labs are okay, then we can maybe add spironolactone. If there is any significant atrial arrhythmias, then beta-blockers but carvedilol can be added too which should help both palpitations and hypertension. Orders: Orders ECG 14 day holter monitor Today R00.2 - Palpitations Basic Metabolic Panel 4 Weeks I10 - Essential (primary) hypertension Medications: New hydrochlorothiazide 25 mg PO DAILY 90 tabs 3RF Discontinued vancomycin Discontinued Reason: Patient no longer taking 125 mg PO QID 10 days 40 caps 0RF Coding Level of Care Code New Pt Level 4 (41437) Diagnoses Atrial arrhythmia I49.8 Essential hypertension I10 CPT Codes EKG - CPT: 46198-[id number], Complete ([id number])
[2023-10-28 08:40] VITALS: BP 164/100; PULSE 61; BMI 25.4
== END 2023-10-28 09:33 | disposition home or self-care (01) ==
PROVIDERS: PCP Internal Medicine; Visit Provider Internal Medicine
DX: I49.8 Other specified cardiac arrhythmias (principal); I10 Essential (primary) hypertension
CPT/HCPCS: 93010; 99204

== ENCOUNTER → 2023-10-28 08:31 | Outpatient (BNVA) | payer BC, SELFPAY | PROVIDERS: PCP Internal Medicine; Visit Provider Internal Medicine | DX: I49.8 Other specified cardiac arrhythmias (principal); I10 Essential (primary) hypertension | CPT/HCPCS: 93005 ==

== ENCOUNTER 2023-11-12 08:01 | Outpatient (REF) | payer BC, SELFPAY ==
[2023-11-12 14:58] LABS: Bacterial Vaginosis PCR NEGATIVE (Negative); Candida Group PCR NOT DETECTED (Not Detect); Candida glab krusei PCR NOT DETECTED (Not Detect); Trichomonas vaginalis PCR NOT DETECTED (Not Detect)
== END 2023-11-12 08:02 | disposition home or self-care (01) ==
LOC: HO.LNP 08:01
PROVIDERS: PCP Internal Medicine; Visit Provider Obstetrics & Gynecology
DX: N89.8 Other specified noninflammatory disorders of vagina (principal)
CPT/HCPCS: 0352U

== ENCOUNTER 2023-11-12 08:01 | Outpatient (AMB) | payer BC, SELFPAY ==
[2023-11-12 08:05] VITALS: BP 110/76; BMI 25.4
--- NOTE | 2023-11-12 08:05 | MHC.OFFVIS ---
Vital Signs 11/12/23 08:05 Height 5 ft 4 in Weight 147 lb 11.355 oz BMI 25.4 BP 110/76 Intake Visit Reasons: post menopausal, HX breast CA/Referral Pasteurizer Required: No Information Interpreted: non-clinical & clinical Film Or Tape Librarian: Film Or Tape Librarian Present (Lian Juarez GLORIA) Accompanied by: Self / Same As Patient Allergies Penicillins [PENICILLINS] Allergy (Intermediate, Verified 11/12/23 08:07) HIVES Sulfa (Sulfonamide Antibiotics) [SULFA (SULFONAMIDE ANTIBIOTICS)] Allergy (Intermediate, Verified 11/12/23 08:07) HIVES penicillin G Allergy (Unknown, Verified 11/12/23 08:07) hives Post menopausal: Yes HPI Comments Details: Presenting complaining of bilateral vulvar itching that started few months ago after a course of antibiotics, recently the patient been diagnosed with elevated fasting blood sugar is in the process of having workup for diabetes. In addition , recently the patient's sister was diagnosed with breast cancer at the age of 54 with positive RAD 51 C gene with a breast cancer risk 21-25% in 5-11% risk of ovarian cancer in her sister. Patient has not had a genetic testing yet Last mammogram in 01/22 was BI-RADS 1 [facility] Medical History Hemochromatosis HTN (hypertension) Family History Brother Atrial fibrillation History of cardioversion Sister Breast cancer Social History Household Members: None Housing: Apartment Alcohol intake: former Patient Tobacco Use Status: Current everyday Tobacco user Cigarettes Per Day: 4 Current occupational status: employed Current occupation: Nurse Sexual orientation: Straight/Heterosexual Gender identity: Female Female Reproductive History Menstrual Date of Mammogram: 01/28/23 Review of Systems Const All systems reviewed & are unremarkable except as noted in HPI and below Physical Exam Vital Signs: Last Vital Signs BP 110/76 11/12/23 08:05 BMI result Body Mass Index 25.4 General: Yes no CVA tenderness External Female Exam: normal external appearance and normal appearance of the urethra Speculum Exam - Vagina: normal appearance of the vagina, normal palpation, no lesions and no masses Speculum Exam - Cervix: normal appearance of the cervix, normal palpation, no lesions, no masses and nontender Bimanual exam- vagina & uterus: normal bimanual exam, normal palpation, uterine size normal, normal palpation, uterine shape normal, No Cervical tenderness present and non-tender Bimanual Exam- Adnexa, other: normal adnexae Back/Spine/Pelvis Back: no CVA tenderness Assessment & Plan Assessment & Plan (1) Vulvovaginal itching: Code(s): L29.2 - Pruritus vulvae Category: Medical Plan: Bacterial Vaginosis panel taken, Terazol 0.8% q.h.s. for 3 days with Lotrisone cream b.i.d. for 5 days were sent to the patient's pharmacy. The patient was instructed to schedule a follow-up appointment within 2 weeks if not improved will consider vulvar biopsy. (2) Family history of breast cancer: Comment: Sister with positive RAD 51 C gene Code(s): Z80.3 - Family history of malignant neoplasm of breast Category: Medical Plan: Given the will history of breast cancer in her sister with a positive genetic component will refer to Dr. Hewitt for further management, possible genetic testing. Instructions given the patient if she has any positive gene identified for breast and elevated ovarian cancer risk to call back will discuss the indication for bilateral prophylactic salpingo oophorectomy. All questions answered, the patient verbalized understanding Orders: Orders Bacterial Vaginosis Panel Today N89.8 - Other specified noninflammatory disorders of vagina Medications: New terconazole 0.8% 1 appful vaginal BEDTIME 3 days 20 grams 0RF clotrimazole-betamethasone 1-0.05 % 1 appl topical BID 5 days 45 grams 0RF Coding Level of Care Code New Pt Level 3 (77085) Diagnoses Vulvovaginal itching L29.2 Family history of breast cancer Z80.3
== END 2023-11-12 10:43 | disposition home or self-care (01) ==
PROVIDERS: PCP Internal Medicine; Visit Provider Obstetrics & Gynecology
DX: L29.2 Pruritus vulvae (principal); Z80.3 Family history of malignant neoplasm of breast
CPT/HCPCS: 99203

== ENCOUNTER 2023-12-10 07:39 | Outpatient (AMB) | payer BC, SELFPAY ==
--- NOTE | 2023-12-10 07:41 | A.OFFVIS_ITS ---
Vital Signs 12/10/23 07:42 Height 5 ft 4 in Weight 147 lb 11.355 oz BMI 25.4 Intake Visit Reasons: 2 week vaginal check College President Required: No Information Interpreted: non-clinical & clinical Commercial Roofing Estimator: Commercial Roofing Estimator Present (Lian Juarez GLORIA) Accompanied by: Self / Same As Patient Allergies Penicillins [PENICILLINS] Allergy (Intermediate, Verified 12/10/23 07:42) HIVES Sulfa (Sulfonamide Antibiotics) [SULFA (SULFONAMIDE ANTIBIOTICS)] Allergy (Intermediate, Verified 12/10/23 07:42) HIVES penicillin G Allergy (Unknown, Verified 12/10/23 07:42) hives Post menopausal: Yes HPI Comments Details: Presenting for follow up regarding vaginal itching. The patient took Terazol 0.8% q.h.s. for 3 days with Lotrisone cream b.i.d. for 5 days and did not have any improvement in terms of itching No appointment scheduled with general surgery regarding consult yet [facility] Medical History Hemochromatosis HTN (hypertension) Family History Brother Atrial fibrillation History of cardioversion Sister Breast cancer Social History Household Members: None Housing: Apartment Alcohol intake: former Patient Tobacco Use Status: Current everyday Tobacco user Cigarettes Per Day: 4 Current occupational status: employed Current occupation: Nurse Sexual orientation: Straight/Heterosexual Gender identity: Female Review of Systems Const All systems reviewed & are unremarkable except as noted in HPI and below Physical Exam General: Yes no CVA tenderness External Female Exam: normal external appearance and normal appearance of the urethra Speculum Exam - Vagina: normal appearance of the vagina, normal palpation, no lesions and no masses Speculum Exam - Cervix: normal appearance of the cervix, normal palpation, no lesions, no masses and nontender Bimanual exam- vagina & uterus: normal bimanual exam, normal palpation, uterine size normal, normal palpation, uterine shape normal, No Cervical tenderness present and non-tender Bimanual Exam- Adnexa, other: normal adnexae Back/Spine/Pelvis Back: no CVA tenderness Assessment & Plan Assessment & Plan (1) Vulvovaginal itching: Code(s): L29.2 - Pruritus vulvae Category: Medical Plan: Discussed with the patient the finding on pelvic exam normal with no evidence of leukoplakia. Trial of clobetasol to be applied the affected area b.i.d. for 7 days. Instructions given to patient to follow-up in 2 weeks. All questions answered, the patient verbalized understanding (2) Family history of breast cancer: Comment: Sister with positive RAD 51 C gene Code(s): Z80.3 - Family history of malignant neoplasm of breast Category: Medical Plan: The patient was referred to general surgery for consult Orders: Referrals General Surgery Referral Z91.89 - Other specified personal risk factors, not elsewhere classified Coding Level of Care Code Est Pt Level 3 (35211) Diagnoses Vulvovaginal itching L29.2 Family history of breast cancer Z80.3
[2023-12-10 07:42] VITALS: BMI 25.4
== END 2023-12-10 08:47 | disposition home or self-care (01) ==
PROVIDERS: PCP Internal Medicine; Visit Provider Obstetrics & Gynecology
DX: L29.2 Pruritus vulvae (principal); Z80.3 Family history of malignant neoplasm of breast
CPT/HCPCS: 99213

== ENCOUNTER → 2023-12-10 07:39 | Outpatient (BNVA) | payer BC, SELFPAY | PROVIDERS: PCP Internal Medicine; Visit Provider Obstetrics & Gynecology ==

== ENCOUNTER 2024-02-03 07:58 | Outpatient (REF) | payer OTHER, SELFPAY ==
--- NOTE | ~2024-02-03 | MM_ITS ---
EXAMINATION: MM SCREENING DIGITAL BREAST TOMOSYNTHESIS, BILATERAL CLINICAL INFORMATION: Screening. Asymptomatic. COMPARISON: Mammography: Comparison is made with available priors TECHNIQUE: Digital breast mammography with tomosynthesis is performed in both the craniocaudal and mediolateral oblique views along with computer-aided detection (CAD). FINDINGS: The breasts are heterogeneously dense, which may obscure small masses (ACR BI-RADS breast composition Category c). There are no significant masses, abnormal calcifications, or other abnormalities. MM/MM tomosynthesis screening BI IMPRESSION: No mammographic evidence of malignancy. ASSESSMENT: BI-RADS BI-RADS 1 - Negative RECOMMENDATION: Routine annual mammography screening. 1 year F/U This examination should not preclude the clinical evaluation of a suspicious palpable abnormality. This patient's information was entered into a reminder system with a target due date for their next mammogram. Electronically signed by: Ondina Morris DO 02/09/2024 10:15 AM VERONICA
== END 2024-02-03 07:59 | disposition home or self-care (01) ==
LOC: HO.MAMMO 07:58
PROVIDERS: PCP Internal Medicine; Visit Provider Internal Medicine
DX: Z12.31 Encounter for screening mammogram for malignant neoplasm of breast (principal)
CPT/HCPCS: 77063; 77067

== ENCOUNTER → 2024-02-03 08:15 | Outpatient (BNV) | payer OTHER, SELFPAY | PROVIDERS: PCP Internal Medicine; Visit Provider Internal Medicine | DX: Z12.31 Encounter for screening mammogram for malignant neoplasm of breast (principal) | CPT/HCPCS: 77063; 77067 ==

== ENCOUNTER 2024-02-12 09:47 | Outpatient (AMB) | payer OTHER, SELFPAY ==
--- NOTE | 2024-02-12 09:53 | MHC.OFFWIV ---
Intake Vital Signs 02/12/24 09:56 Weight 148 lb BP 122/80 Blood Pressure Location Lt brachial Position Sitting Pulse 76 Pulse Source Pulse Oximeter Pulse Oximetry (%) 98 Oxygen Delivery Method Room Air Intake Visit Reasons: EP pain on both hands & wrist specially the RT one Intake Note: Patient here for bilat hand and wrist pain that has been going on for a while now, but last thursday is when it started to worsen. Patient Tobacco Use Status: Current everyday Tobacco user Allergies Penicillins [PENICILLINS] Allergy (Intermediate, Verified 02/12/24 09:55) HIVES Sulfa (Sulfonamide Antibiotics) [SULFA (SULFONAMIDE ANTIBIOTICS)] Allergy (Intermediate, Verified 02/12/24 09:55) HIVES penicillin G Allergy (Unknown, Verified 02/12/24 09:55) hives Do you need a note to return to daycare/school/sports/work: No HPI HPI Comments History of Present Illness Details This is a 63-year-old female with a past medical history of hemochromatosis, arthritis and hypertension presenting for evaluation of bilateral upper arm pain. 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 She states 2 months ago she developed tingling in her upper arms bilaterally that would last for hours and up to 1 day. Patient states last Thursday she started to note pain in her forearms, wrists and hands bilaterally for which she has been taking 600-800 mg of ibuprofen twice daily. Patient states that her pain is worse in the morning. Patient denies any injury or trauma preceding the onset of her symptoms. [facility] Medical History Hemochromatosis HTN (hypertension) Family History Brother Atrial fibrillation History of cardioversion Sister Breast cancer Social History Household Members: None Housing: Apartment Alcohol intake: former Patient Tobacco Use Status: Current everyday Tobacco user Cigarettes Per Day: 4 Current occupational status: employed Current occupation: Nurse Sexual orientation: Straight/Heterosexual Gender identity: Female Review of Systems Const All systems reviewed & are unremarkable except as noted in HPI and below Eyes Reports no additional complaints ENT Reports no additional complaints and Reports neck pain Card Reports no additional complaints Resp Reports no additional complaints GI Reports no additional complaints Reports no additional complaints Musc Denies back pain, Denies myalgias, Reports arthralgias, Denies muscle weakness, Reports neck pain, Denies numbness, Reports stiffness and Reports tingling Skin/Breast Reports system reviewed and no additional complaints, except as documented Neuro Reports no additional complaints, Denies numbness and Reports tingling Psych Reports no additional complaints Endo Reports no additional complaints Edison/Lymph Reports no additional complaints Aller/Immun Reports no additional complaints Physical Exam Vital Signs: Last Vital Signs Pulse 76 02/12/24 09:56 BP 122/80 02/12/24 09:56 Pulse Ox 98 02/12/24 09:56 Oxygen Delivery Method Room Air 02/12/24 09:56 Const General: cooperative, healthy appearing, comfortable, no acute distress, well developed, alert, awake and Physically active; No lethargic Nutritional Appearance: average body habitus Orientation/consciousness: patient oriented x3 and No lethargic Limitations: no limitations Skin General skin exam: no rashes or lesions noted Neuro General: patient oriented x3 Extrem General: Yes full ROM, Yes capillary refill normal and No no joint enlargement (enlargement of MCPs bilateral hands, R > L; chief of field operations strength intact equally) Right upper extremity: normal capillary refill, shoulder/upper arm Details: normal ROM, elbow/forearm (minimal pain medial epicondyle, ROM right olecranon intact), wrist Details: tenderness, swelling and abnormal ROM (decreased ROM secondary to mild pain); no unusual warmth and Extremity exam: right hand Details: normal capillary refill and neuromotor exam normal; no tenderness, no unusual warmth and no swelling; no cyanosis, no edema and joint enlargement noted (MCPs bilaterally enlarged) Left upper extremity: normal to inspection, no joint enlargement, shoulder/upper arm Details: normal ROM and hand Details: normal capillary refill, neuromotor exam normal and normal ROM of fingers; no tenderness, no unusual warmth and no swelling; no cyanosis and no edema Psych Appearance: grossly normal Mental Status: mental status grossly normal Insight: Good insight present (Psych) Judgement: Good judgement present (Psych) Assessment & Plan Assessment & Plan (1) Arthritis: Comment: Patient states her brother works at [employer] and she will obtain wrist splints from him Code(s): M19.90 - Unspecified osteoarthritis, unspecified site Plan: Diclofenac 1% gel topically QID as needed (2) Upper extremity tendinopathy: Comment: Wrist splints daily Code(s): M67.98 - Unspecified disorder of synovium and tendon, other site Plan: EC Naprosyn once daily for pain; patient will discuss ergonomic changes with her employer as her symptoms began shortly after starting her new job 3 months ago. Patient will follow up with her primary care provider as an outpatient. Medications: New naproxen (EC-Naprosyn) 1,000 mg (2 x 500 mg) PO DAILY 40 tabs 0RF diclofenac sodium 1% apply to wrist four times daily 4 grams topical QID 100 grams 1RF Coding Level of Care Code Est Pt Level 3 (35531) Diagnoses Arthritis M19.90 Upper extremity tendinopathy M67.98 Time Spent (min) 30
[2024-02-12 09:56] VITALS: BP 122/80; PULSE 76; O2SAT 98
== END 2024-02-12 10:40 | disposition home or self-care (01) ==
PROVIDERS: PCP Internal Medicine; Visit Provider Physician Assistant
DX: M19.90 Unspecified osteoarthritis, unspecified site (principal); M67.98 Unspecified disorder of synovium and tendon, other site

== ENCOUNTER → 2024-02-12 09:47 | Outpatient (BNVA) | payer OTHER, SELFPAY | PROVIDERS: PCP Internal Medicine; Visit Provider Physician Assistant ==

== ENCOUNTER 2024-02-12 10:26 | Outpatient (REF) | payer OTHER, SELFPAY ==
[2024-02-12 13:11] LABS: MANUAL DIFF FLAG NO
[2024-02-12 13:28] LABS: Basophils Percent Auto 0.5 % (0-2); Eosinophils Absolute Auto 0.1 X10*3/uL (0.0-0.4); Eosinophils Percent Auto 0.9 % (0-4); Hemoglobin 15.5 g/dl (12.0-16.0); Imm Gran Abs Auto 0.08 X10*3/uL (0.00-0.03); Imm Gran Pct Auto 1.1 % (0.0-0.4); Lymphocytes Absolute Auto 1.5 X10*3/uL (1.2-4.9); Lymphocytes Percent Auto 19.5 % (20-40); Mean Corpuscular HGB Conc 34.4 g/dl (31.0-35.0); Mean Corpuscular Hemoglobin 30.7 pg (27.0-33.0); Mean Corpuscular Volume 89.1 fL (80.0-98.0); Mean Platelet Volume 9.9 fL (9.4-12.3); Monocytes Absolute Auto 0.6 X10*3/uL (0.1-1.2); Monocytes Percent Auto 7.6 % (2-11); Neutrophils Absolute Auto 5.3 x10*3/uL (2.0-8.3); Neutrophils Percent Auto 70.4 % (45-73); Platelet Count 346 X10*3/uL (160-400); Red Blood Count 5.05 X10*6/uL (4.20-5.50); Red Cell Distribution Width 15.2 % (11.0-16.0); White Blood Count 7.5 X10*3/uL (4.8-10.8)
[2024-02-12 13:39] LABS: Alanine Aminotransferase 15 U/L (0-31); Albumin Level 4.4 g/dL (3.5-5.0); Alkaline Phosphatase 55 U/L (39-117); Anion Gap 11 (12-20); Aspartate Amino Transferase 30 U/L (5-31); Bilirubin Total 0.3 mg/dL (0.0-1.0); Blood Urea Nitrogen 16 mg/dL (9-16); C Reactive Protein 0.64 mg/dL (< or = 0.50); Calcium 10.3 mg/dL (8.4-10.2); Carbon Dioxide 25 mmol/L (22-29); Chloride 104 mmol/L (96-108); Estimated Glomerular Filt Rate > 60; Glucose Random 90 mg/dL (60-115); Potassium 3.2 mmol/L (3.3-5.1); Sodium 137 mmol/L (135-145); Total Protein 7.1 g/dL (6.5-8.0)
[2024-02-12 14:03] LABS: Erythrocyte Sedimentation Rate 3 MM/HR (0-20)
== END 2024-02-12 10:27 | disposition home or self-care (01) ==
LOC: HO.HMGCLDS 10:26
PROVIDERS: PCP Internal Medicine; Visit Provider Internal Medicine
DX: M79.639 Pain in unspecified forearm (principal)
CPT/HCPCS: 36415; 80053; 82550; 85025; 85652; 86140

== ENCOUNTER 2024-07-13 09:12 | Outpatient (REF) | payer OTHER, SELFPAY ==
--- NOTE | ~2024-07-13 | XR_ITS ---
CLINICAL HISTORY: M54.2 - Cervicalgia 5 views cervical spine Comparison: None Findings: Normal vertebral body alignment. No acute fractures or dislocation. The patient is status post anterior cervical discectomy and fusion from C4 through C6. No complications are noted. No significant degenerative change. Prevertebral soft tissues within normal limits. IMPRESSION: No acute findings. Status post anterior cervical discectomy and fusion from C4 through C6. This document has been electronically signed by: Vitaly Warren MD on 07/14/2024 07:20:52
== END 2024-07-13 09:13 | disposition home or self-care (01) ==
LOC: HO.XRAY 09:12
PROVIDERS: PCP Internal Medicine; Visit Provider Physician Assistant
DX: M54.2 Cervicalgia (principal); G89.29 Other chronic pain
CPT/HCPCS: 72040

== ENCOUNTER 2024-07-13 09:12 | Outpatient (AMB) | payer OTHER, SELFPAY ==
--- NOTE | 2024-07-13 09:13 | MHC.PC.OV ---
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 She reports compliance with her antihypertensives though is quite hypertensive in the office today with blood pressure 154/102 and recheck of 160/106. She is complaining of upper abdominal pain described as dull and aching that has been present for many months but has increased in frequency. Does remain intermittent but she is unsure of any triggers. She states this not feel consistent with a gastritis/GERD. She was seen by General surgery years ago and had a negative HIDA scan. She reports only occasional alcohol use but does drink about 10 oz of coffee on a daily basis. She does take pantoprazole 40 mg but uses this only as needed during the day. States this causes bloating. She does have chronic diarrhea but has had no changes otherwise in bowel habits. No melena or hematochezia. No vomiting or nausea. No unexplained weight loss. She does take ibuprofen for low back pain/sciatica but does not use this on a regular basis. Instead, she typically uses Salonpas and ice/heat. Previously uncontrolled cholesterol levels with total cholesterol 256 and LDL 161. She states she does not feel she will be able to tolerate a statin. She does not follow a healthy diet. Typically consumes pre prepared foods. She is also reporting chronic pain in the cervical spine. She does have history of spinal surgery from C3-6. She has been following with Dr. Aguilar in the past for this and was told that she has a tendinosis. She has not had any recent imaging. She reports pain and tingling into the right upper trapezius. No weakness or paresthesias otherwise in the upper extremities. [facility] Medical History (Updated 07/13/24 @ 12:27 by JOSÉ Gleason) Hemochromatosis HTN (hypertension) Family History Brother Atrial fibrillation History of cardioversion Sister Breast cancer Social History Household Members: None Housing: Apartment Alcohol intake: former Patient Tobacco Use Status: Current everyday Tobacco user Cigarettes Per Day: 4 Current occupational status: employed Current occupation: Nurse Sexual orientation: Straight/Heterosexual Gender identity: Female Physical exam (Primary Care) Vital Signs: Last Vital Signs Temp 97.7 F 07/13/24 09:18 Pulse 60 07/13/24 09:18 Resp 12 07/13/24 09:18 BP 160/106 H 07/13/24 10:15 Pulse Ox 97 07/13/24 09:18 Oxygen Delivery Method Room Air 07/13/24 09:18 BMI result Body Mass Index 25.9 Tobacco/Smoking Status: Tobacco use Status Patient Tobacco Use Status Current everyday Tobacco 07/13/24 09:21 Const Other: Constitutional - Awake and Alert, No apparent distress Eyes - PERRL Neck - supple, trachea midline, no midline ttp. Does have tenderness and significant spasm of the bilateral upper trapezius with full ROM. Cardiovascular - S1S2, RRR, No edema Respiratory - Normal lung expansion, Normal respiratory effort, No respiratory distress, CTA bilaterally GI - nontender to palpation, no guarding or rebound, positive bowel sounds throughout, nondistended Skin - Warm/Dry Neurological - Alert & oriented x3, 5/5 strength BUE, sensation in tact Psychological - Appropriate affect Coding Level of Care Code Tele New Pt Level 4 (66777) Complex EM visit Add On G2211 Diagnoses Essential hypertension I10 Hemochromatosis E83.119 Chronic neck pain M54.2; G89.29 HLD (hyperlipidemia) E78.5 Epigastric pain R10.13 Assessment & Plan Assessment & Plan (1) Essential hypertension: Code(s): I10 - Essential (primary) hypertension Category: Medical Plan: Uncontrolled with blood pressure on recheck 160/106. She is asymptomatic. Will increase hydralazine to 25 mg t.i.d. and she should continue taking hydrochlorothiazide as prescribed. BNP ordered to evaluate renal function and electrolyte levels. Low-sodium diet. (2) Hemochromatosis: Code(s): E83.119 - Hemochromatosis, unspecified Category: Medical Plan: Currently asymptomatic. Continue with blood draws. Will assess blood counts, iron panel, and ferritin. (3) Chronic neck pain: Code(s): M54.2 - Cervicalgia; G89.29 - Other chronic pain Category: Medical Plan: Reports history of ?tendinosis?. X-ray of the cervical spine to assess vertebral height or for any other osseous abnormality. She was referred to physical therapy. She can continue taking ibuprofen as needed as well as ice or heat. (4) HLD (hyperlipidemia): Code(s): E78.5 - Hyperlipidemia, unspecified Category: Medical Plan: Fasting lipid panel ordered previously uncontrolled with LDL of 161 and total cholesterol 256. States that she feels she would be unable to tolerate a statin. Will assess fasting lipid panel and lipoprotein a and calculate ASCVD risk. Healthier diet advised. (5) Epigastric pain: Code(s): R10.13 - Epigastric pain Category: Medical Plan: Chronic with unclear etiology. HIDA scan historically was negative. Has been tested for H pylori in the past which was negative. Could possibly be related to a gastritis. Recommend avoiding triggering items such as caffeine. I have recommended patient take pantoprazole 40 mg daily, not p.r.n.. Can use famotidine p.r.n.. Will also prescribed sucralfate prior to meals and at bedtime. There are no alarm symptoms at this time. However will assess CT of the abdomen/pelvis given duration of symptoms now with increased frequency and severity. We will also assess lipase and liver enzymes. Plan Follow-up in 6 months. Labs to be completed following visit. We will also assess x-ray of the cervical spine. Referred to PT for further evaluation and management.. Blood pressure is uncontrolled. Increase hydralazine to 25 mg t.i.d. Orders: Orders Basic Metabolic Panel Today E83.119 - Hemochromatosis, unspecified, I10 - Essential (primary) hypertension, Z13.1 - Encounter for screening for diabetes mellitus, Z13.220 - Encounter for screening for lipoid disorders Complete Blood Count Auto Diff Today E83.119 - Hemochromatosis, unspecified, I10 - Essential (primary) hypertension, Z13.1 - Encounter for screening for diabetes mellitus, Z13.220 - Encounter for screening for lipoid disorders Ferritin Today E83.119 - Hemochromatosis, unspecified, I10 - Essential (primary) hypertension, Z13.1 - Encounter for screening for diabetes mellitus, Z13.220 - Encounter for screening for lipoid disorders Lipid Panel Today E83.119 - Hemochromatosis, unspecified, I10 - Essential (primary) hypertension, Z13.1 - Encounter for screening for diabetes mellitus, Z13.220 - Encounter for screening for lipoid disorders IRON PROFILE Today E83.119 - Hemochromatosis, unspecified, I10 - Essential (primary) hypertension, Z13.1 - Encounter for screening for diabetes mellitus, Z13.220 - Encounter for screening for lipoid disorders XR cervical spine 2V Today G89.29 - Other chronic pain, M54.2 - Cervicalgia Lipase Today R10.13 - Epigastric pain Lipoprotein A Today E78.5 - Hyperlipidemia, unspecified Liver Panel Today E83.119 - Hemochromatosis, unspecified, I10 - Essential (primary) hypertension, Z13.1 - Encounter for screening for diabetes mellitus, Z13.220 - Encounter for screening for lipoid disorders TSH reflex Free T4 Today E83.119 - Hemochromatosis, unspecified, I10 - Essential (primary) hypertension, Z13.1 - Encounter for screening for diabetes mellitus, Z13.220 - Encounter for screening for lipoid disorders PT Evaluation and Treatment Today E78.5 - Hyperlipidemia, unspecified, G89.29 - Other chronic pain, M54.2 - Cervicalgia Medications: New sucralfate 1 g PO QIDACHS 60 tabs 0RF Changed From hydralazine 25 mg PO BID 180 tabs 1RF To hydralazine 25 mg PO TID 180 tabs 1RF
[2024-07-13 09:18] VITALS: BP 154/102; PULSE 60; RESP 12; TEMP 36.5; O2SAT 97; BMI 25.9
[2024-07-13 10:15] VITALS: BP 160/106
== END 2024-07-13 09:55 | disposition home or self-care (01) ==
LOC: HO.HMCHD 09:12
PROVIDERS: PCP Internal Medicine; Visit Provider Physician Assistant
DX: I10 Essential (primary) hypertension (principal); E83.119 Hemochromatosis, unspecified; M54.2 Cervicalgia; G89.29 Other chronic pain; E78.5 Hyperlipidemia, unspecified; R10.13 Epigastric pain

== ENCOUNTER → 2024-07-13 10:09 | Outpatient (BNV) | payer OTHER, SELFPAY | PROVIDERS: PCP Internal Medicine; Visit Provider Radiology Diagnostic Radiology | DX: M54.2 Cervicalgia (principal) | CPT/HCPCS: 72040 ==

== ENCOUNTER 2024-07-14 06:25 | Outpatient (REF) | payer OTHER, SELFPAY ==
[2024-07-14 06:40] LABS: MANUAL DIFF FLAG NO
[2024-07-14 07:18] LABS: Basophils Absolute Auto 0.1 X10*3/uL (0.0-0.2); Basophils Percent Auto 1.5 % (0-2); Eosinophils Absolute Auto 0.2 X10*3/uL (0.0-0.4); Eosinophils Percent Auto 2.9 % (0-4); Hematocrit 45.4 % (37.0-47.0); Hemoglobin 15.7 g/dl (12.0-16.0); Imm Gran Abs Auto 0.01 X10*3/uL (0.00-0.03); Imm Gran Pct Auto 0.2 % (0.0-0.4); Lymphocytes Absolute Auto 1.6 X10*3/uL (1.2-4.9); Mean Corpuscular HGB Conc 34.6 g/dl (31.0-35.0); Mean Corpuscular Hemoglobin 31.9 pg (27.0-33.0); Mean Corpuscular Volume 92.3 fL (80.0-98.0); Mean Platelet Volume 9.5 fL (9.4-12.3); Monocytes Absolute Auto 0.5 X10*3/uL (0.1-1.2); Monocytes Percent Auto 8.8 % (2-11); Neutrophils Percent Auto 56.6 % (45-73); Platelet Count 284 X10*3/uL (160-400); Red Blood Count 4.92 X10*6/uL (4.20-5.50); Red Cell Distribution Width 13.7 % (11.0-16.0); White Blood Count 5.2 X10*3/uL (4.8-10.8)
[2024-07-14 07:46] LABS: Alanine Aminotransferase 16 U/L (0-31); Albumin Level 4.2 g/dL (3.5-5.0); Alkaline Phosphatase 50 U/L (39-117); Anion Gap 11 (12-20); Aspartate Amino Transferase 25 U/L (5-31); Bilirubin Direct 0.1 mg/dL (0.0-0.5); Bilirubin Total 0.4 mg/dL (0.0-1.0); Blood Urea Nitrogen 13 mg/dL (9-16); Calcium 9.6 mg/dL (8.4-10.2); Carbon Dioxide 26 mmol/L (22-29); Chloride 105 mmol/L (96-108); Cholesterol 223 mg/dL (<200); Estimated Glomerular Filt Rate > 60; Glucose Random 97 mg/dL (60-115); HDL Cholesterol 59 mg/dL (>40); Iron 145 mcg/dL (30-160); LDL Cholesterol Calculated 140 mg/dL (<100); Lipase 21 U/L (8-78); Percent Iron Saturation 66 % (15-50); Potassium 3.3 mmol/L (3.3-5.1); Sodium 139 mmol/L (135-145); Total Iron Binding Capacity 220 mcg/dL (228-428); Total Protein 6.6 g/dL (6.5-8.0); Triglycerides 124 mg/dL (<150); Unsaturated Iron Binding 75 ug/dL
[2024-07-14 08:11] LABS: Ferritin 29 ng/mL (10-250); TSH reflex Free T4 3.79 uIU/mL (0.32-4.0)
[2024-07-19 08:49] LABS: Lipoprotein A <10 nmol/L (<75)
== END 2024-07-14 06:26 | disposition home or self-care (01) ==
LOC: HO.LAB 06:25
PROVIDERS: PCP Internal Medicine; Visit Provider Physician Assistant
DX: E83.119 Hemochromatosis, unspecified (principal); I10 Essential (primary) hypertension; Z13.220 Encounter for screening for lipoid disorders; Z13.1 Encounter for screening for diabetes mellitus; R10.13 Epigastric pain; E78.5 Hyperlipidemia, unspecified
CPT/HCPCS: 36415; 80048; 80061; 80076; 82728; 83540; 83690; 83695; 84443; 85025

== ENCOUNTER 2024-07-29 07:46 | Outpatient (AMB) | payer OTHER, SELFPAY ==
--- NOTE | 2024-07-29 08:03 | A.OFFPC_ITS ---
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 Accompanied by: Self / Same As Patient Allergies Penicillins [PENICILLINS] Allergy (Intermediate, Verified 07/29/24 08:04) HIVES Sulfa (Sulfonamide Antibiotics) [SULFA (SULFONAMIDE ANTIBIOTICS)] Allergy (Intermediate, Verified 07/29/24 08:04) HIVES penicillin G Allergy (Unknown, Verified 07/29/24 08:04) hives Medication List - Last Reconciled 07/29/24 by JOSÉ Gleason alprazolam 0.5 mg PO BEDTIME PRN famotidine 20 mg PO DAILY PRN hydralazine 25 mg PO TID hydrochlorothiazide 25 mg PO DAILY pantoprazole 40 mg PO DAILY PRN sertraline (Zoloft) 50 mg PO DAILY sucralfate 1 g PO QIDACHS HPI HPI Comments History of Present Illness Details 63-year-old female with history of hyper tension, anxiety, hyperlipidemia presents to the office today for routine follow-up. She was seen in the office 2 weeks ago with significantly elevated blood pressure of 160/106. At that time, hydralazine was increased to 25 mg t.i.d. and she is continued on hydrochlorothiazide 25 mg daily. Blood pressure in the office today is 138/88. Her lipid panel was also uncontrolled with total cholesterol 223, LDL 140. ASCVD risk of cardiovascular event in 10 years 9.6%. Statin was recommended. Patient had not been following healthy diet and was often consuming premade meals. She also continues smoking. Reports on days she is working, she will need smoke about 3-4 cigarettes but on days she is off she will smoke around a pack per day. She does have lozenges. She states that she has been having significant difficulties with depression for months that has been significantly affecting her life and interfering with her making healthier choices. She states that she is having difficulty functioning and really does not want to function. She states she is unable to get out of her head. She is not eating right and sleeping too often. She is not coping well. Her mother is ill and in a long term making things more difficult. She is unhealthy coping mechanisms such as smoking during her time off. She acknowledges previous things that brought her ulysses but is no longer partaking in them. She does deny any suicidal ideation. PHQ-9 score 21, severe depression. She does also have anxiety and has been using 1/2 tab 0.25mg xanax BID without much effect. Still occasional panic with palpitations. ROS: General: No fevers, malaise, unintentional weight loss HEENT: No blurred vision, diplopia. No sore throat, nasal congestion, rhinorrhea, sinus pain, ear pain Cardiovascular: No chest pain, palpitations, or leg edema Respiratory: No shortness of breath, wheezing, cough GI: No abdominal pain, nausea, vomiting, diarrhea, constipation, melena, hematochezia : No dysuria, hematuria, increased urinary frequency, decreased urinary output MSK: No myalgia, back pain Neuro: No headaches, weakness, paresthesias Skin: No rashes or lesions Psych: See hpi EXAM: Constitutional - Awake and Alert, No apparent distress Eyes - PERRLA, EOMI Cardiovascular - S1S2, RRR, No edema Respiratory - Normal lung expansion, Normal respiratory effort, No respiratory distress, CTA bilaterally Extremities - no calf tenderness bilaterally, no swelling Skin - Warm/Dry Neurological - Alert & oriented x3 Psychological - depressed, affect normal. No si PFSH Medical History (Updated 07/29/24 @ 08:54 by JOSÉ Gleason) Anxiety MDD (major depressive disorder) Hemochromatosis HTN (hypertension) Surgical History (Updated 07/13/24 @ 16:19 by Bruna Daniels) History of colonoscopy (~02/21/22) Family History Brother Atrial fibrillation History of cardioversion Sister Breast cancer Social History Household Members: None Housing: Apartment Alcohol intake: former Patient Tobacco Use Status: Current everyday Tobacco user Cigarettes Per Day: 4 Current occupational status: employed Current occupation: Nurse Sexual orientation: Straight/Heterosexual Gender identity: Female Questionnaire PHQ-9 Over the last 2 weeks, how often have you been bothered by any of the following problems? 1. Little interest or pleasure in doing things: nearly every day 2. Feeling down, depressed, or hopeless: nearly every day 3. Trouble falling or staying asleep, or sleeping too much: nearly every day 4. Feeling tired or having little energy: nearly every day 5. Poor appetite or overeating: nearly every day 6. Feeling bad about yourself - or that you are a failure or have let yourself or your family down: nearly every day 7. Trouble concentrating on things, such as reading the newspaper or watching television: nearly every day 8. Moving or speaking so slowly that other people could have noticed. Or the opposite - being so fidgety or restless that you have been moving around a lot more than usual: not at all 9. Thoughts that you would be better off or of hurting yourself in some way: not at all Total score: 21 Depression Screening Interpretation: Positive Depression Screening Done: Yes 91652 - PHQ-9 Billing: Yes Source: Developed by Drs. Fernando Piper, Harleen Merritt, Jaswinder Whitlock and colleagues, with an educational brenda from [employer]. Physical exam (Primary Care) Vital Signs: Last Vital Signs Temp 97.9 F 07/29/24 08:05 Pulse 76 07/29/24 08:05 Resp 14 07/29/24 08:05 BP 138/88 07/29/24 08:05 Pulse Ox 97 07/29/24 08:05 Oxygen Delivery Method Room Air 07/29/24 08:05 BMI result Body Mass Index 26.4 Tobacco/Smoking Status: Tobacco use Status Patient Tobacco Use Status Current everyday Tobacco 07/29/24 08:04 Are you ready to quit: Yes Tobacco cessation counseling provided: Yes Relapse Prevention: discussed the importance of a supportive environment, discussed extending NRT and discussed dietary, exercise and/or lifestyle changes CPT code: 15708 - 4-10 Minutes Depression Screening Interpretation: Positive Coding Level of Care Code Est Pt Level 4 (87876) Complex EM visit Add On G2211 Diagnoses MDD (major depressive disorder) F32.9 Anxiety F41.9 Hemochromatosis E83.119 Essential hypertension I10 HLD (hyperlipidemia) E78.5 Additional Codes PHQ-9 - 31971 - PHQ-9 Billing: Yes ([id number]) Vital Signs *Quality* - CPT code: 89599 - 4-10 Minutes ([id number]) Assessment & Plan Assessment & Plan (1) MDD (major depressive disorder): Code(s): F32.9 - Major depressive disorder, single episode, unspecified Category: Medical Plan: Uncontrolled, severe depression PHQ-9 21. No SI/HI or history of such. Discussed finding counselor or showed [facility] [place] [facility]. Discussed pharmicologic therapy which patient is interested in. Initiated sertraline 50 mg daily. Advised to take 25 mg daily x1 week then increase to 50 mg daily. She is counseled on dosing and side effects including black box warning of worsening depression including suicidal ideation. Discussed positive Healthycoping mechanisms. Recommend follow-up in the office in 4-6 weeks. (2) Anxiety: Code(s): F41.9 - Anxiety disorder, unspecified Category: Medical Plan: Sertraline as above. Can continue using Xanax as needed. (3) Hemochromatosis: Code(s): E83.119 - Hemochromatosis, unspecified Category: Medical Plan: Stable. Ferritin level continues to remain within normal limits. Has not needed to undergo blood draws in quite some time. We will continue holding blood draws. (4) Essential hypertension: Code(s): I10 - Essential (primary) hypertension Category: Medical Plan: Controlled with blood pressure 138/88. Continue hydralazine 25 mg t.i.d. and hydrochlorothiazide 25 mg daily. Low-sodium diet. Smoking cessation strongly advised. (5) HLD (hyperlipidemia): Code(s): E78.5 - Hyperlipidemia, unspecified Category: Medical Plan: ASCVD risk 9.6%. LDL 140, not at goal. Risk of cardiovascular event has been discussed. However, given her depression has been interfering with healthy life choices, will defer statin at this time and work on management of depressive symptoms. She reports her ilzmah-ax-noy is a dietitian and can work with her on healthy lifestyle modifications. Will reassess cholesterol levels at follow-up visits. She is aware that her biggest risk factor right now is her cigarette smoking and she will be working on this as well Plan Follow up in 6 weeks. Zoloft as prescribed. Look for counselor Medications: New sertraline (Zoloft) 50 mg PO DAILY 90 tabs 0RF
[2024-07-29 08:05] VITALS: BP 138/88; PULSE 76; RESP 14; TEMP 36.6; O2SAT 97; BMI 26.4
== END 2024-07-29 08:38 | disposition home or self-care (01) ==
LOC: HO.HMCHD 07:47
PROVIDERS: PCP Internal Medicine; Visit Provider Physician Assistant
DX: F32.9 Major depressive disorder, single episode, unspecified (principal); F41.9 Anxiety disorder, unspecified; E83.119 Hemochromatosis, unspecified; I10 Essential (primary) hypertension; E78.5 Hyperlipidemia, unspecified

== ENCOUNTER → 2024-07-29 07:46 | Outpatient (BNVA) | payer OTHER, SELFPAY | PROVIDERS: PCP Internal Medicine; Visit Provider Physician Assistant | DX: I10 Essential (primary) hypertension (principal); F32.2 Major depressive disorder, single episode, severe without psychotic features; F41.9 Anxiety disorder, unspecified; E83.119 Hemochromatosis, unspecified; E78.5 Hyperlipidemia, unspecified; Z79.899 Other long term (current) drug therapy; Z13.31 Encounter for screening for depression | CPT/HCPCS: 96127 ==

== ENCOUNTER 2024-09-07 07:50 | Outpatient (AMB) | payer OTHER, SELFPAY ==
--- NOTE | 2024-09-07 07:59 | A.OFFPC_ITS ---
Vital Signs 09/07/24 08:02 09/07/24 08:17 Height 5 ft 4 in Weight 67.132 kg BMI 25.4 BP 130/92 H 130/86 Respiration 14 Pulse 62 Pulse Source Pulse Oximeter Temp 97.6 F Temp Source Temporal Artery Scan Pulse Oximetry (%) 97 Oxygen Delivery Method Room Air Intake Visit Reasons: routine Reliability Engineer Required: No Accompanied by: Self / Same As Patient Allergies Penicillins (PENICILLINS) Allergy (Intermediate, Verified 09/07/24 08:02) HIVES Sulfa (Sulfonamide Antibiotics) (SULFA (SULFONAMIDE ANTIBIOTICS)) Allergy (Intermediate, Verified 09/07/24 08:02) HIVES penicillin G Allergy (Unknown, Verified 09/07/24 08:02) hives Medication List - Last Reconciled 09/07/24 by JOSÉ Gleason alprazolam 0.25 mg PO BID PRN famotidine 20 mg PO DAILY PRN hydralazine 25 mg PO TID hydrochlorothiazide 25 mg PO DAILY hydroxyzine HCl 25 mg PO BEDTIME PRN pantoprazole 40 mg PO DAILY PRN sertraline (Zoloft) 75 mg (1.5 x 50 mg) PO DAILY sucralfate 1 g PO QIDACHS HPI HPI Comments History of Present Illness Details 63-year-old female with history of hyper tension, anxiety, hyperlipidemia presents to the office today for follow-up. She was seen in the office 1 month ago for significant anxiety. At that time, PHQ-9 was 21. She was started on sertraline 50 mg daily which he has been taking as prescribed. No adverse effects. She does report that she is still experiencing symptoms of agoraphobia as well as panic at nighttime which makes it difficult for her to sleep. She is still taking alprazolam twice daily but reports she is breaking her tab in half. She has been looking for a therapist and did find someone but did not hear back. She does reports she does feel a little better, feels ?more available?. No SI/HI. Today in the office PHQ-9 score is 14 and TASIA-7 score is 8. Blood pressure initially 130/92 and on recheck 130/86. She is compliant with antihypertensives. ROS: General: No fevers, malaise, unintentional weight loss HEENT: No blurred vision, diplopia. No sore throat, nasal congestion, rhinorrhea, sinus pain, ear pain Cardiovascular: No chest pain, palpitations, or leg edema Respiratory: No shortness of breath, wheezing, cough GI: No abdominal pain, nausea, vomiting, diarrhea, constipation, melena, hematochezia : No dysuria, hematuria, increased urinary frequency, decreased urinary output MSK: No myalgia, back pain Neuro: No headaches, weakness, paresthesias Psych : see hpi Skin: No rashes or lesions EXAM: Constitutional - Awake and Alert, No apparent distress Eyes - PERRL Cardiovascular - S1S2, RRR, No edema Respiratory - Normal lung expansion, Normal respiratory effort, No respiratory distress, CTA bilaterally Extremities - no calf tenderness bilaterally, no swelling Skin - Warm/Dry Neurological - Alert & oriented x3 Psychological - Appropriate affect, anxious appearing. See hpi [facility] Medical History (Updated 09/07/24 @ 08:20 by JOSÉ Gleason) Agoraphobia Anxiety MDD (major depressive disorder) Hemochromatosis HTN (hypertension) Surgical History (Updated 07/13/24 @ 16:19 by Bruna Daniels) History of colonoscopy (~02/21/22) Family History Brother Atrial fibrillation History of cardioversion Sister Breast cancer Social History Household Members: None Housing: Apartment Alcohol intake: former Patient Tobacco Use Status: Current everyday Tobacco user Cigarettes Per Day: 4 Current occupational status: employed Current occupation: Nurse Sexual orientation: Straight/Heterosexual Gender identity: Female Questionnaire PHQ-9 Over the last 2 weeks, how often have you been bothered by any of the following problems? 1. Little interest or pleasure in doing things: several days 2. Feeling down, depressed, or hopeless: more than half the days 3. Trouble falling or staying asleep, or sleeping too much: nearly every day 4. Feeling tired or having little energy: more than half the days 5. Poor appetite or overeating: more than half the days 6. Feeling bad about yourself - or that you are a failure or have let yourself or your family down: more than half the days 7. Trouble concentrating on things, such as reading the newspaper or watching television: more than half the days 8. Moving or speaking so slowly that other people could have noticed. Or the opposite - being so fidgety or restless that you have been moving around a lot more than usual: several days 9. Thoughts that you would be better off or of hurting yourself in some way: not at all Total score: 15 Depression Screening Interpretation: Positive Depression Screening Done: Yes 52123 - PHQ-9 Billing: Yes Source: Developed by Drs. Fernando Piper, Jaswinder Baez and colleagues, with an educational brenda from [employer]. TASIA-7 AMB Questionnaire TASIA-7 Feeling nervous, anxious, or on edge: 2 = More than half the days Not being able to stop or control worryin = Several days Worrying too much about different things: 2 = More than half the days Trouble relaxin = Several days Being so restless that it is hard to sit still: 1 = Several days Becoming easily annoyed or irritable: 1 = Several days Feeling afraid as if something awful might happen: 0 = Not at all Total TASIA-7 score (0-4 normal; 5-9 mild; 10-14 moderate; 15-21 severe): 8 Source: Developed by Drs. Fernando Piper, Harleen Merritt, Jaswinder Whitlock and colleagues, with an educational brenda from [employer]. TASIA-7 Assessment Billing TASIA-7 Assessment Tool: TASIA-7 Assessment 91214 Physical exam (Primary Care) Vital Signs: Last Vital Signs Temp 97.6 F 09/07/24 08:02 Pulse 62 09/07/24 08:02 Resp 14 09/07/24 08:02 BP 130/92 H 09/07/24 08:02 Pulse Ox 97 09/07/24 08:02 Oxygen Delivery Method Room Air 09/07/24 08:02 BMI result Body Mass Index 25.4 Tobacco/Smoking Status: Tobacco use Status Patient Tobacco Use Status Current everyday Tobacco 09/07/24 08:05 Depression Screening Interpretation: Positive Coding Level of Care Code Est Pt Level 4 (04287) Complex EM visit Add On G2211 Diagnoses Agoraphobia F40.00 Anxiety F41.9 MDD (major depressive disorder) F32.9 Essential hypertension I10 Additional Codes PHQ-9 - 23689 - PHQ-9 Billing: Yes ([id number]) TASIA-7 Assessment Billing - TASIA-7 Assessment Tool: TASIA-7 Assessment 24415 ([id number]) Assessment & Plan Assessment & Plan (1) Agoraphobia: Code(s): F40.00 - Agoraphobia, unspecified Category: Medical Plan: Improved, tasia 7 score 8. Recommend seeking out therapist as discussed. Increase Zoloft to 75 mg daily, advised can take at night. Advised to increase to 100 mg if symptoms not improving after 2-3 weeks. (2) Anxiety: Code(s): F41.9 - Anxiety disorder, unspecified Category: Medical Plan: Improved, tasia 7 score 8. Recommend seeking out therapist as discussed. Increase Zoloft to 75 mg daily, advised can take at night. Advised to increase to 100 mg if symptoms not improving after 2-3 weeks. Can continue taking alprazolam bid. Advised to take whole tab at bedtime given panic. Can also use hydroyzine prn at bedtime. (3) MDD (major depressive disorder): Code(s): F32.9 - Major depressive disorder, single episode, unspecified Category: Medical Plan: Improved, phq9 score 14. Recommend seeking out therapist as discussed. Increase Zoloft to 75 mg daily, advised can take at night. Advised to increase to 100 mg if symptoms not improving after 2-3 weeks. (4) Essential hypertension: Code(s): I10 - Essential (primary) hypertension Category: Medical Plan: Controlled. Continue hydralazine 25 mg t.i.d., hydrochlorothiazide 25 mg daily. Will also continue working on anxiety control. Plan Follow-up in the office in 3 months, sooner if needed. Advised to contact the office should symptoms persist or worsen following dose increase as above Medications: New hydroxyzine HCl 25 mg PO BEDTIME PRN 90 tabs 0RF sleep Changed From sertraline (Zoloft) 50 mg PO DAILY 90 tabs 0RF To sertraline (Zoloft) 75 mg (1.5 x 50 mg) PO DAILY 90 tabs 0RF
[2024-09-07 08:02] VITALS: BP 130/92; PULSE 62; RESP 14; TEMP 36.4; O2SAT 97; BMI 25.4
[2024-09-07 08:17] VITALS: BP 130/86
== END 2024-09-07 08:24 | disposition home or self-care (01) ==
LOC: HO.HMCHD 07:51
PROVIDERS: PCP Internal Medicine; Visit Provider Physician Assistant
DX: F40.00 Agoraphobia, unspecified (principal); F41.9 Anxiety disorder, unspecified; F32.9 Major depressive disorder, single episode, unspecified; I10 Essential (primary) hypertension

== ENCOUNTER → 2024-09-07 07:50 | Outpatient (BNVA) | payer OTHER, SELFPAY | PROVIDERS: PCP Internal Medicine; Visit Provider Physician Assistant | DX: F41.9 Anxiety disorder, unspecified (principal); F40.00 Agoraphobia, unspecified; F32.9 Major depressive disorder, single episode, unspecified; I10 Essential (primary) hypertension | CPT/HCPCS: 96127 ==

== ENCOUNTER 2024-12-02 07:55 | Outpatient (AMB) | payer OTHER, SELFPAY ==
[2024-12-02 07:57] VITALS: BP 132/80; PULSE 61; TEMP 36.5; O2SAT 99; BMI 25.4
--- NOTE | 2024-12-02 07:57 | A.OFFPC_ITS ---
Vital Signs 12/02/24 07:57 Height 5 ft 4 in Weight 67.132 kg BMI 25.4 BP 132/80 Blood Pressure Location Lt brachial Position Sitting Pulse 61 Pulse Source Pulse Oximeter Temp 97.7 F Temp Source Temporal Artery Scan Pulse Oximetry (%) 99 Oxygen Delivery Method Room Air Intake Visit Reasons: 3 mo f/u - see comments Assistant Center Manager Required: No Accompanied by: Self / Same As Patient Allergies Penicillins (PENICILLINS) Allergy (Intermediate, Verified 12/02/24 07:57) HIVES Sulfa (Sulfonamide Antibiotics) (SULFA (SULFONAMIDE ANTIBIOTICS)) Allergy (Intermediate, Verified 12/02/24 07:57) HIVES penicillin G Allergy (Unknown, Verified 12/02/24 07:57) hives Tobacco use date assessed: 12/02/24 Dental Screening Dental Screen Date: 12/02/24 Did you have a dental visit in the last 12 months?: Yes Did you have a dental problem in the last 6 months where you did not have access to dental care?: No HPI HPI Comments History of Present Illness Details 63-year-old female with history of hyper tension, anxiety, hyperlipidemia, GERD presents to the office today for follow-up. Anxiety/agoraphobia-sertraline increased to 75 mg at last visit. She felt she was having increased palpitations so is now only taking 25 mg which he states is helping. Continues on alprazolam twice daily, especially at bedtime. Was seeking out a therapist but has not yet seen 1 Hypertension-hydrochlorothiazide 25 mg daily and hydralazine. Blood pressure in the office GERD- ppi HLD- last ldl 146. not on statin ROS: See HPI EXAM: Constitutional - Awake and Alert, No apparent distress Eyes - PERRL Cardiovascular - S1S2, RRR, No edema Respiratory - Normal lung expansion, Normal respiratory effort, No respiratory distress, CTA bilaterally Extremities - no calf tenderness bilaterally, no swelling Skin - Warm/Dry Neurological - Alert & oriented x3 Psychological - Appropriate affect, anxious appearing. PFSH Medical History Agoraphobia Anxiety MDD (major depressive disorder) Hemochromatosis HTN (hypertension) Surgical History History of colonoscopy (~12/23/22) Family History (Updated 12/02/24 @ 08:06 by Kimber Staton MA) Brother Atrial fibrillation History of cardioversion Sister Breast cancer Mother No problems noted. Father No problems noted. Social History Household Members: None Housing: Apartment Alcohol intake: former Patient Tobacco Use Status: Current everyday Tobacco user Cigarettes Per Day: 4 e-Cigarette/Vaping Use: Currently Using Current occupational status: employed Current occupation: Nurse Sexual orientation: Straight/Heterosexual Gender identity: Female Cognitive needs: No Hearing needs: No Vision needs: No Questionnaire PHQ-9 Over the last 2 weeks, how often have you been bothered by any of the following problems? 1. Little interest or pleasure in doing things: not at all 2. Feeling down, depressed, or hopeless: nearly every day 3. Trouble falling or staying asleep, or sleeping too much: nearly every day 4. Feeling tired or having little energy: nearly every day 5. Poor appetite or overeating: not at all 6. Feeling bad about yourself - or that you are a failure or have let yourself or your family down: not at all 7. Trouble concentrating on things, such as reading the newspaper or watching television: not at all 8. Moving or speaking so slowly that other people could have noticed. Or the opposite - being so fidgety or restless that you have been moving around a lot more than usual: not at all 9. Thoughts that you would be better off or of hurting yourself in some way: not at all Total score: 9 Source: Developed by Drs. Fernando Piper, Harleen Merritt, Jaswinder Whitlock and colleagues, with an educational brenda from [employer]. Thrive Questionnaire Date Thrive assessed: 12/02/24 I am a: Patient Within the past 12 months, did the food you bought not last and you didn't have the money to get more?: Never true Within the past 12 months, did you worry whether your food would run out before you got money to buy more?: Never true Do you have trouble paying for medicines?: No Do you have trouble getting transportation to medical appointments?: No Do you have trouble paying your heating and electricity bill?: No Do you have trouble taking care of your child, family member or friend?: No Do you have trouble with day-to-day activities such as bathing, preparing meals, shopping, managing finances, etc.?: No Are you currently unemployed and looking for a job?: No Are you interested in more education?: No THRIVE Score: 0 AUDIT C Alcohol Use Questionnaire (AUDIT-C) 1. How often do you have a drink containing alcohol?: Never 3. How often do you have six or more drinks on one occasion?: Never Total Score: 0 TASIA-7 AMB Questionnaire TASIA-7 Date TASIA - 7 assessed: 12/02/24 Feeling nervous, anxious, or on edge: 3 = Nearly every day Not being able to stop or control worryin = Not at all Worrying too much about different things: 0 = Not at all Trouble relaxin = Not at all Being so restless that it is hard to sit still: 0 = Not at all Becoming easily annoyed or irritable: 0 = Not at all Feeling afraid as if something awful might happen: 0 = Not at all Total TASIA-7 score (0-4 normal; 5-9 mild; 10-14 moderate; 15-21 severe): 3 Source: Developed by Drs. Fernando Piepr, Harleen Merritt, Jaswinder Whitlock and colleagues, with an educational brenda from [employer]. Physical exam (Primary Care) Vital Signs: Last Vital Signs Temp 97.7 F 12/02/24 07:57 Pulse 61 12/02/24 07:57 BP 132/80 12/02/24 07:57 Pulse Ox 99 12/02/24 07:57 Oxygen Delivery Method Room Air 12/02/24 07:57 BMI result Body Mass Index 25.4 Tobacco/Smoking Status: Tobacco use Status Tobacco use date assessed 12/02/24 12/02/24 07:59 Patient Tobacco Use Status Current everyday Tobacco 12/02/24 07:59 e-Cigarette/Vaping Use Currently Using 12/02/24 07:59 PHQ-9: PHQ-9 Score PHQ-9: Total score 9 12/02/24 09:02 Thrive Assessment: Date of Thrive Assessment Date Thrive assessed 12/02/24 12/02/24 07:59 Coding Level of Care Code Est Pt Level 4 (34001) Complex EM visit Add On G2211 Diagnoses Agoraphobia F40.00 Anxiety F41.9 MDD (major depressive disorder) F32.9 Essential hypertension I10 Assessment & Plan Assessment & Plan (1) Agoraphobia: Code(s): F40.00 - Agoraphobia, unspecified Category: Medical Plan: Improved, continue with alprazolam as needed. Can continue with reduced dose of sertraline. Recommend seeking out therapist as discussed. (2) Anxiety: Code(s): F41.9 - Anxiety disorder, unspecified Category: Medical Plan: As above. (3) MDD (major depressive disorder): Code(s): F32.9 - Major depressive disorder, single episode, unspecified Category: Medical Plan: I as above (4) Essential hypertension: Code(s): I10 - Essential (primary) hypertension Category: Medical Plan: Controlled. Continue hydralazine 25 mg t.i.d., hydrochlorothiazide 25 mg daily. Plan Follow-up in the office in 6 months for annual physical exam, labs to be completed prior to visit Orders: Orders Basic Metabolic Panel 6 Months E78.5 - Hyperlipidemia, unspecified, F32.9 - Major depressive disorder, single episode, unspecified, F41.9 - Anxiety disorder, unspecified, I10 - Essential (primary) hypertension Ferritin 6 Months E78.5 - Hyperlipidemia, unspecified, F32.9 - Major depressive disorder, single episode, unspecified, F41.9 - Anxiety disorder, unspecified, I10 - Essential (primary) hypertension Lipid Panel 6 Months E78.5 - Hyperlipidemia, unspecified, F32.9 - Major depressive disorder, single episode, unspecified, F41.9 - Anxiety disorder, unspecified, I10 - Essential (primary) hypertension Complete Blood Count Auto Diff 6 Months E78.5 - Hyperlipidemia, unspecified, F32.9 - Major depressive disorder, single episode, unspecified, F41.9 - Anxiety disorder, unspecified, I10 - Essential (primary) hypertension Liver Panel 6 Months E78.5 - Hyperlipidemia, unspecified, F32.9 - Major depressive disorder, single episode, unspecified, F41.9 - Anxiety disorder, unspecified, I10 - Essential (primary) hypertension Referrals Cardiology Referral I49.8 - Other specified cardiac arrhythmias, R00.2 - Palpitations Medications: New sertraline 25 mg PO DAILY 90 tabs 1RF Discontinued sertraline (Zoloft) Discontinued Reason: Doctor's Order 75 mg (1.5 x 50 mg) PO DAILY 90 tabs 0RF
== END 2024-12-02 08:21 | disposition home or self-care (01) ==
LOC: HO.HMCHD 07:56
PROVIDERS: PCP Internal Medicine; Visit Provider Physician Assistant
DX: F40.00 Agoraphobia, unspecified (principal); F41.9 Anxiety disorder, unspecified; F32.9 Major depressive disorder, single episode, unspecified; I10 Essential (primary) hypertension

== ENCOUNTER 2025-01-10 14:14 | Outpatient (AMB) | payer OTHER, SELFPAY ==
[2025-01-10 14:28] VITALS: BP 122/68; PULSE 67; BMI 25.7
--- NOTE | 2025-01-10 14:28 | MHC.OFFVIS ---
Vital Signs 01/10/25 14:28 Height 5 ft 4 in Weight 149 lb 14.629 oz BMI 25.7 BP 122/68 Blood Pressure Location Lt brachial Position Sitting Pulse 67 Pulse Source Monitor Intake Visit Reasons: F/u per PCP Allergies Penicillins (PENICILLINS) Allergy (Intermediate, Verified 12/02/24 07:57) HIVES Sulfa (Sulfonamide Antibiotics) (SULFA (SULFONAMIDE ANTIBIOTICS)) Allergy (Intermediate, Verified 12/02/24 07:57) HIVES penicillin G Allergy (Unknown, Verified 12/02/24 07:57) hives Medication List - Last Reconciled 01/10/25 by Scotty Reynolds MD alprazolam 0.5 mg PO BID PRN famotidine 20 mg PO DAILY PRN hydralazine 25 mg PO TID hydrochlorothiazide 25 mg PO DAILY pantoprazole 40 mg PO DAILY PRN sertraline 25 mg PO DAILY HPI Comments Details: Linda returns for follow-up. In the past, she was seen regarding palpitations. However, workup was fairly unremarkable. She states that she still feels somewhat similar where she feels her heart fluttering at random times. No other symptoms like exertional angina. History of poorly controlled hypertension but seems much better now. [facility] Medical History Agoraphobia Anxiety MDD (major depressive disorder) Hemochromatosis HTN (hypertension) Surgical History History of colonoscopy (~02/21/22) Family History (Updated 12/02/24 @ 08:06 by Kimber Staton MA) Brother Atrial fibrillation History of cardioversion Sister Breast cancer Mother No problems noted. Father No problems noted. Social History Household Members: None Housing: Apartment Alcohol intake: former Patient Tobacco Use Status: Current everyday Tobacco user Cigarettes Per Day: 4 e-Cigarette/Vaping Use: Currently Using Current occupational status: employed Current occupation: Nurse Sexual orientation: Straight/Heterosexual Gender identity: Female Cognitive needs: No Hearing needs: No Vision needs: No Review of Systems Const Denies weakness ENT Denies dizziness Card Denies chest pain, Denies chest pain with activity, Denies syncope, Denies rapid heart rate, Denies pedal edema, Denies edema, Denies leg edema, Denies lightheadedness, Denies palpitations, Denies dyspnea, Denies dyspnea on exertion and Denies orthopnea Resp Denies cough, Denies dyspnea and Denies dyspnea on exertion GI Denies hematochezia and Denies change in stool character Musc Denies abnormal gait, Denies muscle cramps, Denies muscle weakness, Denies numbness, Denies radiating pain into limb and Denies tingling Neuro Denies abnormal gait, Denies dizziness, Denies syncope, Denies numbness, Denies tingling and Denies weakness Endo Denies palpitations Physical Exam Vital Signs: Last Vital Signs Pulse 67 01/10/25 14:28 BP 122/68 01/10/25 14:28 BMI result Body Mass Index 25.7 Const General: comfortable and no acute distress Orientation/consciousness: patient oriented x3 HEENT Other: Unremarkable Head: Yes normal to inspection Neck Neck: Yes normal visual inspection Chest Chest palpation & inspection: normal inspection of the chest Resp Auscultation: clear to auscultation bilaterally Cardio Palpation: normal PMI Heart sounds: S1 normal heart sound present, S2 normal heart sound present, no gallops, no murmurs and no rubs GI Palpation (GI): Soft to palpation Back/Spine/Pelvis Other: unremarkable Skin General skin exam: no rashes or lesions noted Neuro General: patient oriented x3 Extrem General: Yes normal to inspection Psych Mental Status: mental status grossly normal Office Procedures EKG Details: EKG with underlying sinus rhythm at 67/Min; nonspecific ST-T changes; [place] [id number], Complete Assessment & Plan Assessment & Plan (1) Atrial arrhythmia: Code(s): I49.8 - Other specified cardiac arrhythmias Category: Medical Plan: Cardiac studies reviewed. Echocardiogram with LVEF of 60-65%. Normal peak global longitudinal strain. Top normal ascending aortic size at 3.5 cm but otherwise unremarkable. Holter shows underlying sinus rhythm with rare supraventricular ectopy. In the stress test, she was able to exercise up to 7.2 METS on Silviano protocol and reached target heart rate. No chest discomfort. Unremarkable test. Overall, symptoms possibly from PACs, but unclear if she has any other arrhythmias. In the past, we had discussed about a longer term monitor, but not pursued as apparently it was too expensive for her. Currently, she is willing. Hence try a 30 day monitor. (2) Essential hypertension: Code(s): I10 - Essential (primary) hypertension Category: Medical Plan: Intolerance to several medications including amlodipine, lisinopril, losartan. Currently on hydrochlorothiazide blood pressure seems stable. Can continue that. Plan Discussion Notes I discussed with the patient the importance of monitoring her heart rhythm and recommended a 30-day heart monitor to assess any irregularities. We also talked about the option of using an [id number] device like Kardia for home monitoring. The patient was advised to continue her current hypertension management and to follow up with her primary care provider for medication adjustments as needed. Patient was informed and verbally consented to the use of an ambient scribe for clinic note documentation during this visit. Total time spent including review of data, counseling, documentation, coordination of care-31 minutes. Orders: Orders ECG 30 day event monitor Today I49.8 - Other specified cardiac arrhythmias Medications: Changed From hydrochlorothiazide Needs appointment with Cardiology 25 mg PO DAILY 90 tabs 0RF I49.8 - Other specified cardiac arrhythmias To hydrochlorothiazide 25 mg PO DAILY 90 tabs 1RF I49.8 - Other specified cardiac arrhythmias Patient Instructions: - Use a 30-day heart monitor as recommended to track heart rhythm. - Continue taking hydrochlorothiazide as prescribed and monitor blood pressure regularly. - Follow up with your primary care provider for ongoing management of hypertension and medication adjustments. - Monitor dietary intake, particularly salt, and report any changes in symptoms to your healthcare provider. Coding Level of Care Code Est Pt Level 4 (02763) Complex EM visit Add On G2211 Diagnoses Atrial arrhythmia I49.8 Essential hypertension I10 CPT Codes EKG - CPT: 44796-[id number], Complete ([id number])
== END 2025-01-10 14:50 | disposition home or self-care (01) ==
LOC: HO.HCS 14:15
PROVIDERS: PCP Internal Medicine; Visit Provider Internal Medicine
DX: I49.8 Other specified cardiac arrhythmias (principal); I10 Essential (primary) hypertension
CPT/HCPCS: 93010; 99214; G2211

== ENCOUNTER → 2025-01-10 14:14 | Outpatient (BNVA) | payer OTHER, SELFPAY | PROVIDERS: PCP Internal Medicine; Visit Provider Internal Medicine | DX: I49.8 Other specified cardiac arrhythmias (principal); I10 Essential (primary) hypertension; F17.210 Nicotine dependence, cigarettes, uncomplicated | CPT/HCPCS: 93005 ==

== ENCOUNTER → 2025-02-01 13:50 | Outpatient (REF) | payer OTHER, SELFPAY | LOC: HO.CARD 13:50 | PROVIDERS: PCP Internal Medicine; Visit Provider Internal Medicine | DX: I49.8 Other specified cardiac arrhythmias (principal) | CPT/HCPCS: 93270 ==

== ENCOUNTER → 2025-02-01 13:52 | Outpatient (BNV) | payer OTHER, SELFPAY | PROVIDERS: PCP Internal Medicine; Visit Provider Internal Medicine Cardiovascular Disease | DX: I49.8 Other specified cardiac arrhythmias (principal) | CPT/HCPCS: 93272 ==

== ENCOUNTER 2025-02-13 07:23 | Outpatient (REF) | payer OTHER, SELFPAY ==
--- NOTE | ~2025-02-13 | MM_ITS ---
EXAMINATION: MM SCREENING DIGITAL BREAST TOMOSYNTHESIS, BILATERAL CLINICAL INFORMATION: Screening. Asymptomatic. COMPARISON: Mammography: Comparison is made with available priors TECHNIQUE: Digital breast mammography with tomosynthesis is performed in both the craniocaudal and mediolateral oblique views along with computer-aided detection (CAD). FINDINGS: The breasts are heterogeneously dense, which may obscure small masses. Left: Asymmetry superior breast middle to posterior depth on MLO view. Asymmetry lateral breast anterior to middle depth on CC view. No suspicious calcifications or other abnormal findings. Right: There are no significant masses, abnormal calcifications, or other abnormalities. MM/MM tomosynthesis screening BI IMPRESSION: Additional imaging is recommended ASSESSMENT: BI-RADS Category 0: Incomplete - Need additional Imaging Evaluation RECOMMENDATION: 1. Additional views of the left breast. 2. Targeted ultrasound if warranted after review of the additional views. 3. Radiology department staff will contact the patient for additional imaging. Additional Imaging required Electronically signed by: Ondina Morris DO 02/15/2025 02:09 PM VERONICA
== END 2025-02-13 07:24 | disposition home or self-care (01) ==
LOC: HO.MAMMO 07:23
PROVIDERS: PCP Physician Assistant; Visit Provider Internal Medicine
DX: Z12.31 Encounter for screening mammogram for malignant neoplasm of breast (principal)
CPT/HCPCS: 77063; 77067

== ENCOUNTER → 2025-02-13 07:30 | Outpatient (BNV) | payer OTHER, SELFPAY | PROVIDERS: PCP Physician Assistant; Visit Provider Internal Medicine | DX: Z12.31 Encounter for screening mammogram for malignant neoplasm of breast (principal) | CPT/HCPCS: 77063; 77067 ==